=== PATIENT | female | born 1940 | race Caucasian/White ===

== ENCOUNTER → 2017-04-20 | Outpatient (CLI) | payer MEDICARE ==
[~2017-04-20] MED LIST: IOHEXOL 180 MG/ML 10 ML VIAL.; methylPREDNISolone ACETATE 40 MG/ML VIAL.; methylPREDNISolone ACETATE 80 MG/ML VIAL.
== END | disposition home or self-care (01) ==
LOC: PNCL 07:36
DX: M51.16 Intervertebral disc disorders with radiculopathy, lumbar region (principal); M48.061 Spinal stenosis, lumbar region without neurogenic claudication; I25.10 Atherosclerotic heart disease of native coronary artery without angina pectoris; I10 Essential (primary) hypertension; J43.9 Emphysema, unspecified; K21.9 Gastro-esophageal reflux disease without esophagitis; M19.90 Unspecified osteoarthritis, unspecified site; Z86.73 Personal history of transient ischemic attack (TIA), and cerebral infarction without residual deficits
CPT/HCPCS: 62323; J1030; J1040

== ENCOUNTER → 2017-05-04 | Outpatient (CLI) | payer MEDICARE | END | disposition home or self-care (01) | LOC: PNCL 07:29 | DX: M51.16 Intervertebral disc disorders with radiculopathy, lumbar region (principal); M48.061 Spinal stenosis, lumbar region without neurogenic claudication | CPT/HCPCS: 62323; J1030; J1040; Q9965 ==

== ENCOUNTER → 2017-05-25 | Outpatient (CLI) | payer MEDICARE ==
[~2017-05-25] MED LIST changes: +BUPIVACAINE MPF 0.25% 10 ML VIAL.; -IOHEXOL 180 MG/ML 10 ML VIAL.; -methylPREDNISolone ACETATE 80 MG/ML VIAL.
== END | disposition home or self-care (01) ==
LOC: PNCL 09:12
DX: M79.1 Myalgia (principal); M51.16 Intervertebral disc disorders with radiculopathy, lumbar region; M48.061 Spinal stenosis, lumbar region without neurogenic claudication; M54.5 Low back pain; I25.10 Atherosclerotic heart disease of native coronary artery without angina pectoris; J43.9 Emphysema, unspecified; I10 Essential (primary) hypertension; Z86.73 Personal history of transient ischemic attack (TIA), and cerebral infarction without residual deficits; K21.9 Gastro-esophageal reflux disease without esophagitis; M19.90 Unspecified osteoarthritis, unspecified site; Z79.899 Other long term (current) drug therapy
CPT/HCPCS: 20552; J1030; J3490

== ENCOUNTER → 2017-06-22 | Outpatient (CLI) | payer MEDICARE ==
[2017-06-22] MEDS: REGADENOSON 0.4 MG/5 ML DISP.SYRIN. IV (11:14)
== END | disposition home or self-care (01) ==
LOC: ECHO 07:25
DX: I25.10 Atherosclerotic heart disease of native coronary artery without angina pectoris (principal); I08.1 Rheumatic disorders of both mitral and tricuspid valves; I12.9 Hypertensive chronic kidney disease with stage 1 through stage 4 chronic kidney disease, or unspecified chronic kidney disease; N18.1 Chronic kidney disease, stage 1; J43.9 Emphysema, unspecified; Z79.899 Other long term (current) drug therapy
CPT/HCPCS: 78452; 93017; 93306; 96374; 96375; 96376; A9500; J2785

== ENCOUNTER → 2017-07-19 | Outpatient (CLI) | payer MEDICARE ==
[2017-07-20] MEDS: OXYMETAZOLINE 0.05% NASAL SPRAY 30ML BOTTLE. NS (00:45)
== END | disposition home or self-care (01) ==
LOC: SLPLAB 18:18
DX: G47.33 Obstructive sleep apnea (adult) (pediatric) (principal)
CPT/HCPCS: 95810

== ENCOUNTER → 2017-07-28 | Outpatient (CLI) | payer MEDICARE ==
[2017-07-28 08:28] LABS: CHOLESTEROL 160 mg/dL (0-200); HDLC 36 mg/dL (40-60); LDLC 100 mg/dL (0-100); NON-HDL CHOLESTEROL 124 mg/dL (0-129); TRIGLYCERIDES 118 mg/dL (0-150); VLDLC 24 mg/dL (0-40)
[2017-07-28 08:29] LABS: CHOLESTEROL/HDL RATIO 4.4
[2017-07-28 13:22] LABS: VITAMIN-B12 520 pg/mL (247-911)
== END | disposition home or self-care (01) ==
LOC: LAB 07:28
DX: E78.5 Hyperlipidemia, unspecified (principal); R53.83 Other fatigue
CPT/HCPCS: 36415; 80061; 82607

== ENCOUNTER → 2017-08-18 | Outpatient (CLI) | payer MEDICARE | END | disposition home or self-care (01) | LOC: SLPLAB 20:09 | DX: G47.33 Obstructive sleep apnea (adult) (pediatric) (principal); I12.9 Hypertensive chronic kidney disease with stage 1 through stage 4 chronic kidney disease, or unspecified chronic kidney disease; N18.1 Chronic kidney disease, stage 1 | CPT/HCPCS: 95810 ==

== ENCOUNTER → 2017-08-27 | Outpatient (CLI) | payer MEDICARE ==
[~2017-08-27] MED LIST changes: -BUPIVACAINE MPF 0.25% 10 ML VIAL.; +CONTRAST GIVEN. MC; -methylPREDNISolone ACETATE 40 MG/ML VIAL.
[2017-08-27 15:16] LABS: CREATININE 0.9 mg/dL (0.6-1.0); GFR 60.6
[2017-08-27 15:16] LABS: BLOOD UREA NITROGEN 28 mg/dL (7-20)
[2017-08-27] MEDS: IOHEXOL 300 MG/ML 100ML VIAL. IV (15:54)
== END | disposition home or self-care (01) ==
LOC: CT 14:39
DX: I25.10 Atherosclerotic heart disease of native coronary artery without angina pectoris (principal); K44.9 Diaphragmatic hernia without obstruction or gangrene; N28.1 Cyst of kidney, acquired; J98.11 Atelectasis; I70.0 Atherosclerosis of aorta
CPT/HCPCS: 36415; 71275; 82565; 84520; Q9967

== ENCOUNTER → 2017-08-30 | Outpatient (CLI) | payer MEDICARE ==
[~2017-08-30] MED LIST changes: -CONTRAST GIVEN. MC; +IOHEXOL 180 MG/ML 10 ML VIAL.; +LIDOCAINE 1% PF 2 ML VIAL.; +methylPREDNISolone ACETATE 40 MG/ML VIAL.; +methylPREDNISolone ACETATE 80 MG/ML VIAL.
== END | disposition home or self-care (01) ==
LOC: PNCL 07:42
DX: M51.16 Intervertebral disc disorders with radiculopathy, lumbar region (principal); M48.061 Spinal stenosis, lumbar region without neurogenic claudication
CPT/HCPCS: 62323; J1030; J1040; Q9965

== ENCOUNTER → 2017-09-02 | Outpatient (CLI) | payer MEDICARE | END | disposition home or self-care (01) | LOC: KCIC DEXA 09:28 | DX: M85.88 Other specified disorders of bone density and structure, other site (principal); E55.9 Vitamin D deficiency, unspecified; E11.9 Type 2 diabetes mellitus without complications; M51.36 Other intervertebral disc degeneration, lumbar region; I12.9 Hypertensive chronic kidney disease with stage 1 through stage 4 chronic kidney disease, or unspecified chronic kidney disease; N18.2 Chronic kidney disease, stage 2 (mild); E78.5 Hyperlipidemia, unspecified; Z78.0 Asymptomatic menopausal state | CPT/HCPCS: 77080 ==

== ENCOUNTER → 2017-11-25 | Outpatient (CLI) | payer MEDICARE ==
[~2017-11-25] MED LIST changes: +ACET-1571 PO; +AMLO10TA6 PO; +ASPI-482 PO; +ERGO500027 PO; +GABA-585 PO; -IOHEXOL 180 MG/ML 10 ML VIAL.; +IOHEXOL 180 MG/ML 10 ML VIAL. ONE; -LIDOCAINE 1% PF 2 ML VIAL.; +LIDOCAINE 2% PF 2ML VIAL. ONE; +METO-247 PO; +QUIN40TA16 PO; +TOLT2CAP PO; +TOLT4CAP PO; -methylPREDNISolone ACETATE 40 MG/ML VIAL.; +methylPREDNISolone ACETATE 40 MG/ML VIAL. ONE; -methylPREDNISolone ACETATE 80 MG/ML VIAL.; +methylPREDNISolone ACETATE 80 MG/ML VIAL. ONE
--- NOTE | 2017-11-25 19:34 | PAIN ---
DATE OF SERVICE: 11/25/2017 PROGRESS NOTE FOR PAIN CLINIC DIAGNOSES: Lumbar radiculopathy with lumbar degenerative disk disease, lumbar spinal stenosis. HISTORY OF PRESENT ILLNESS: The patient is a 77-year-old female who returns for followup status post lumbar epidural steroid injections, last seen 08/30/2017. The patient did very well, about 90% improvement for the first few weeks, pain is returning now in the low back and left lower extremity as it was previously, mostly in the posterior gluteus, posterolateral thigh, lateral anterior thigh, medial thigh, into the medial hip on the left side. The patient reports a 9 on a scale of 10 at its worst, 8 on average, 5 at its least and is a 5 today. The patient reports it is becoming more constant, more sharp, shooting, stabbing and radiating in the left leg. She was increasing her distance walking, vacuuming at home, doing increased household activities and feels that she may have "overdone it." The patient reports no new motor or sensory deficits, no new bowel or bladder incontinence or other complaints. PHYSICAL EXAMINATION: VITAL SIGNS: The patient's blood pressure 150/81, pulse 75, respirations 16, temperature 98.1 degrees Fahrenheit. Height is 5 feet 6 inches, weight is 184 pounds. GENERAL: The patient is awake, alert, oriented, appropriate, very pleasant demeanor. HEENT: Head shows normocephalic, atraumatic. Extraocular movements are intact, symmetrical. Oral cavity: Mucous membranes moist and pink. Dentition is intact. NECK: Shows anterior throat supple without palpable lymphadenopathy noted. Swallow reflex symmetrical. CHEST: Shows normal with inspection. Breath sounds clear to auscultation bilaterally. HEART: Shows S1, S2 clear. No murmurs auscultated. ABDOMEN: Soft, nontender, nondistended. No palpable organomegaly. No rebound or guarding demonstrated. BACK: Shows spine grossly in the midline. Slight exaggeration of thoracic kyphosis, some minor flattening of lumbar lordotic curvature. Lumbar paraspinous muscle shows symmetrical on inspection, with palpation shows only some mild tenderness diffusely in the low lumbar distribution of paraspinous muscles bilaterally without radiation, without trigger points. No tenderness with palpation of the sacrum or sacroiliac regions over the spinous processes. The patient has good rotational motion of lumbar spine, both laterally as well as extension and flexion without difficulty or pain reported. EXTREMITIES: Lower extremities show deep tendon reflexes 2+ in the patellar, 1+ tendo calcaneus tendons, are equal. Motor exam is strong with 5/5 dorsiflexion, extension, quadriceps and hamstring flexion and symmetrical. Peripheral pulses are 1+ posterior tibia. No peripheral edema is noted. Options were discussed with the patient. The patient's old chart was reviewed as her current medication regimen updated. Current review of systems updated today as well and we will proceed with the first in the series of lumbar epidural steroid injection today with fluoroscopic guidance. Risks were again discussed including, but not limited to bleeding, infection, possibility of epidural hematoma, subsequent neurologic compromise, dural puncture, headaches, spinal cord and/or nerve damage, side effects of steroid medication and poor results regarding pain control. The patient understands and wished to proceed. The patient will return to clinic in approximately 2 weeks for followup, was counseled on return appointment, activity level and side effects to be aware of. DIAGNOSES: Lumbar radiculopathy with lumbar spinal stenosis, lumbar degenerative disk disease. PROCEDURE: Lumbar epidural steroid injection, translaminar approach L4-L5 level using C-arm fluoroscopic guidance under sterile prep and drape using local anesthetic. MEDICATION INJECTED: A total of 120 mg Depo-Medrol plus 10 mL of preservative-free normal saline and 2 mL of Isovue for contrast. CONDITION AT DISCHARGE: Stable. The patient tolerated procedure well, had no complications. TURNER LEVY MD DR: ALBERTO/lopez JOB#: [id number] / [id number]
== END | disposition home or self-care (01) ==
LOC: PNCL 07:52
PROVIDERS: ATTEND Anesthesiology
DX: M51.16 Intervertebral disc disorders with radiculopathy, lumbar region (principal); M48.061 Spinal stenosis, lumbar region without neurogenic claudication
CPT/HCPCS: 62323; J1030; J1040; J2001; Q9965

== ENCOUNTER → 2017-12-13 | Outpatient (CLI) | payer MEDICARE ==
--- NOTE | 2017-12-13 09:42 | PAIN ---
DATE OF SERVICE: 12/13/2017 DIAGNOSES: Lumbar radiculopathy with lumbar degenerative disk disease and lumbar spinal stenosis. HISTORY OF PRESENT ILLNESS: The patient is a 77-year-old female who returns for followup status post lumbar epidural steroid injection x 1. The patient reports about 50% improvement after the first injection, but the pain is returning now more on the left than the right in the lower extremities, but her toes are doing much better. The patient reports she is having significant pain in her toes that has now gone. She has been increasing her activity with greater distance walking, doing household activities with greater ease and comfort, still waking her from sleep occasionally with pain in the low back, again worse on the left, but about every 4-5 hours. She can reposition, gently get out of bed, change positions and get back to sleep without too much difficulty. The patient reports her pain is a 9 on a scale of 10 on average, but it can also be as low as a 4, at its worse is a 9, least is a 3, and is a 4 today. The patient reports it is a dull, tight, shooting, radiating across the low back into the left lower extremity greater than the right, mostly in the lateral anterior aspect of the thigh, but the toes are doing much better. No new motor or sensory deficits. No new bowel or bladder incontinence or other complaints. PHYSICAL EXAMINATION: VITAL SIGNS: The patient's blood pressure is 133/54, pulse 76, respirations 20, temperature 98.0 degrees Fahrenheit, height is 5 feet 6 inches, weight is 184 pounds. GENERAL: The patient is awake, alert, oriented, appropriate, very pleasant demeanor. HEENT: Head shows normocephalic, atraumatic. Extraocular movements are intact and symmetrical. Oral cavity: Mucous membranes moist and pink. Dentition is intact. NECK: Shows anterior throat supple without palpable lymphadenopathy noted. Swallow reflex is symmetrical. CHEST: Shows normal with inspection. Breath sounds are clear to auscultation bilaterally. HEART: Shows S1, S2 clear. No murmurs auscultated. ABDOMEN: Soft, nontender, nondistended. No palpable organomegaly is noted. No rebound or guarding demonstrated. BACK: Shows spine grossly in the midline, normal appearing thoracic kyphosis and some minor flattening of lumbar lordotic curvature. Lumbar paraspinous muscle shows symmetrical on inspection. With palpation shows some mild tenderness, but only diffusely in the lower middle distribution of paraspinous muscles. The patient has good rotational motion, however, both laterally greater than 10 degrees right and left as well as extension greater than 10 degrees, forward flexion 45 degrees without discomfort. EXTREMITIES: Lower extremities show deep tendon reflexes at 2+ in the patellar, 1+ tendo calcaneus tendons. Motor exam is strong with 5/5 dorsiflexion, extension, quadriceps and hamstring flexion and symmetrical. Peripheral pulses are 1+ posterior tibia. No peripheral edema is noted bilaterally. Options were discussed with the patient. The patient's old chart was reviewed as is her current medication regimen updated. Current review of systems is updated today as well. We will proceed with lumbar epidural steroid injections, the second in this series with fluoroscopic guidance. Risks were again discussed including, but not limited to bleeding, infection, possibility of epidural hematoma, subsequent neurologic compromise, dural puncture, headaches, spinal cord and/or nerve damage, side effects of steroid medication and poor results regarding pain control. The patient understands and wished to proceed. The patient will return to the clinic in approximately 2 weeks for followup, was counseled on return appointment, activity level and side effects to be aware of. DIAGNOSIS: Lumbar radiculopathy with lumbar spinal stenosis, lumbar degenerative disk disease. PROCEDURE: Lumbar epidural steroid injection, translaminar approach at L4-L5 level using C-arm fluoroscopic guidance under sterile prep and drape using local anesthetic. MEDICATION INJECTED: A total of 120 mg Depo-Medrol plus 10 mL of preservative-free normal saline and 2 mL of Isovue for contrast. CONDITION AT DISCHARGE: Stable. The patient tolerated the procedure well, had no complications. TURNER LEVY MD DR: ALBERTO/lopez JOB#: [id number] / [id number]
== END | disposition home or self-care (01) ==
LOC: PNCL 08:00
PROVIDERS: ATTEND Anesthesiology
DX: M51.16 Intervertebral disc disorders with radiculopathy, lumbar region (principal); M48.061 Spinal stenosis, lumbar region without neurogenic claudication; Z79.899 Other long term (current) drug therapy
CPT/HCPCS: 62323; J1030; J1040; J2001; Q9965

== ENCOUNTER → 2017-12-27 | Outpatient (CLI) | payer MEDICARE ==
[~2017-12-27] MED LIST changes: +BUPIVACAINE MPF 0.25% 30 ML VIAL. ONE; -IOHEXOL 180 MG/ML 10 ML VIAL. ONE; -LIDOCAINE 2% PF 2ML VIAL. ONE; -methylPREDNISolone ACETATE 80 MG/ML VIAL. ONE
--- NOTE | 2017-12-27 20:11 | PAIN ---
DATE OF SERVICE: 12/27/2017 DIAGNOSES: 1. Lumbar radiculopathy with lumbar spinal stenosis and lumbar degenerative disk disease. 2. Myofascial pain. HISTORY OF PRESENT ILLNESS: The patient is a 77-year-old female who returns for followup status post lumbar epidural steroid injection x 2. The patient reports she did very well with these for about 2 weeks, then the pain returns fairly significantly to near baseline. The patient reports still overall about 50% better in the low back and left hip and lower extremity. The patient reports pain is sharp, stabbing and now is more localized in the left posterior gluteus and the hip, which is very sore, very tender. The patient is undergoing physical therapy and reports that they were doing some trigger massage in this area, which is started up to some extent and caused more pain in the left hip. Otherwise, the leg is doing better as is the low back. The patient reports pain is 8 on a scale of 10 at its worse, 5 on average, 4 at its least and is a 5 today in the left posterior hip itself. The patient reports no new motor or sensory deficits, no new bowel or bladder incontinence or other complaints, worse with standing, walking, changing positions and getting up from a sitting position most specifically in this region. PHYSICAL EXAMINATION: VITAL SIGNS: The patient's blood pressure 157/82, pulse 80, respirations are 20, temperature is 98.2 degrees Fahrenheit, height is 5 feet 6 inches, weight is 185 pounds. GENERAL: The patient is awake, alert, oriented, appropriate, very pleasant demeanor. HEENT: Head shows normocephalic, atraumatic. Extraocular movements are intact, symmetrical. Oral cavity, mucous membranes moist and pink. Dentition is intact. NECK: Shows anterior throat supple without palpable lymphadenopathy noted. Swallow reflex is symmetrical. CHEST: Shows normal with inspection. Breath sounds clear to auscultation bilaterally. HEART: Shows S1, S2 clear. No murmurs auscultated. ABDOMEN: Soft, nontender, nondistended. No palpable organomegaly is noted. No rebound or guarding demonstrated. BACK: Shows spine grossly in the midline. Normal appearing thoracic kyphosis and lumbar lordotic curvature. Lumbar paraspinous musculature shows symmetrical on inspection and palpation shows some mild tenderness but only diffusely bilaterally in the low lumbar distribution without radiation. EXTREMITIES: The patient's lower extremities show deep tendon reflexes 2+ in the patellar, 1+ tendo calcaneus tendons. Motor exam is strong with 5/5 dorsiflexion and extension, quadriceps and hamstring flexion. The patient's left gluteus shows significant tenderness, a very firm trigger point area of musculature in the inferior lateral aspect of the left gluteus, which is exquisitely tender with palpation and very firm right side shows only very mild tenderness without trigger points. Options were discussed with the patient. The patient's old chart was reviewed as her current medication regimen and updated. Current review of systems is updated today as well. We will proceed with a trigger point injection of the left gluteus. Risks were discussed including but not limited to bleeding, infection, possibility of intravascular injection sequelae, spread of local anesthetic and numbness, side effects of steroid medication and poor results regarding pain control. The patient understands and wished to proceed. The patient to return to the clinic in approximately 2 weeks for followup, was counseled on return appointment, activity level and side effects to be aware of. DIAGNOSIS: Myofascial pain in the left gluteus. PROCEDURE: Trigger point injection left gluteus under sterile prep and drape using local anesthetic. MEDICATION INJECTED: A total of 4 mL of 0.25% bupivacaine and 40 mg Depo-Medrol total with negative aspiration. The patient tolerated procedure well, had no complications. TURNER LEVY MD DR: ALBERTO/lopez JOB#: [id number] / [id number]
== END | disposition home or self-care (01) ==
LOC: PNCL 08:10
PROVIDERS: ATTEND Anesthesiology
DX: M79.18 Myalgia, other site (principal); M51.16 Intervertebral disc disorders with radiculopathy, lumbar region; M48.061 Spinal stenosis, lumbar region without neurogenic claudication
CPT/HCPCS: 20552; J1030; J3490

== ENCOUNTER → 2017-12-30 | Outpatient (CLI) | payer MEDICARE ==
[~2017-12-30] MED LIST changes: -BUPIVACAINE MPF 0.25% 30 ML VIAL. ONE; -methylPREDNISolone ACETATE 40 MG/ML VIAL. ONE
--- NOTE | 2017-12-30 17:42 | RAD ---
THYROID ULTRASOUND History: Thyroid nodule on chest CT Comparison: August 27, [address] Findings: Multiple sonographic images of the thyroid gland are submitted. Right lobe measured 5.3 x 1.9 x 1.18. Left lobe measured 5.1 x 2 x 1.9 cm. There are multiple small nodules of the right gland, about 5 present with dominant nodule of the mid to inferior right gland about 0.9 x 0.9 x 0.8 cm, not associated with significant internal vascularity. Isthmus measured 0.2 cm in thickness. There is a heterogeneous solid and cystic lesion of the mid left gland about 1.7 x 1.5 at 1.3 cm in size not associated with significant internal vascularity on color Doppler imaging. There is heterogeneity of the thyroid parenchyma. Impression: 1. There is thyromegaly and heterogeneity of the thyroid parenchyma, several small nodules on the right with the largest up to 0.9 cm and a more heterogeneous partially solid and cystic lesion of the mid left gland up to 1.7 cm although not associated with significant hypervascularity. Electronically signed by: Krzysztof Hui MD (12/30/2017 5:39 PM) [email or web address]
--- NOTE | 2017-12-30 17:45 | RAD ---
RENAL COMPLETE BILATERAL History: Abnormal CT, renal cyst Comparison: Chest CT August 27, 2017 and also August 29, 2010 ultrasound Findings: Multiple sonographic images of the kidneys and urinary bladder are submitted. Right kidney measured 9.9 x 3.5 x 4.2 cm. Left kidney measured 10 x 4.6 x 5.5 cm. There is no hydronephrosis of either kidney. Urinary bladder morphology is within normal limits. There is a hypoechoic lesion of the superior right kidney up to 1.2 x 1.4 x 1.1 cm with increased through transmission, overall findings of a cyst. There are 3 hypoechoic lesions of the left kidney. Largest of the mid to superior left kidney measured 6.8 x 7.6 x 5.3 cm. Focus of the mid pole measures 1.3 x 1.3 x 1 cm. Focus inferiorly measures 1 3.4 x 3.5 x 3.5 cm. These are not associated with significant hypervascularity, overall findings suggestive of cysts. Impression: 1. There are bilateral renal cysts, largest superiorly of the left kidney up to 7.6 cm in size. There is no hydronephrosis of either kidney. Electronically signed by: Krzysztof Hui MD (12/30/2017 5:42 PM) [id number]
== END | disposition home or self-care (01) ==
LOC: US 14:59
DX: N28.1 Cyst of kidney, acquired (principal); E01.0 Iodine-deficiency related diffuse (endemic) goiter; N28.89 Other specified disorders of kidney and ureter
CPT/HCPCS: 76536; 76770

== ENCOUNTER → 2018-01-10 | Outpatient (CLI) | payer MEDICARE ==
[~2018-01-10] MED LIST changes: +BUPIVACAINE MPF 0.25% 10 ML VIAL. ONE; +methylPREDNISolone ACETATE 40 MG/ML VIAL. ONE
--- NOTE | 2018-01-10 12:14 | PAIN ---
DATE OF SERVICE: 01/10/2018 DIAGNOSES: 1. Lumbar radiculopathy with lumbar degenerative disk disease, lumbar spinal stenosis. 2. Myofascial pain. HISTORY OF PRESENT ILLNESS: The patient is a 77-year-old female who returns for followup status post lumbar epidural steroid injections x 2. Also, trigger point injection on her last visit in the left gluteus musculature. The patient reports she did very well about a week, almost 100% improvement, now is about a 50% improvement overall, still some pain in the left hip and low back as well as in the bilateral lower extremities, somewhat worse on the left than the right, with some numbness and tingling in her toes as well. The patient reports significant pain in the right posterior shoulder as well, which has been more noticeable in the last few weeks. The patient reports her pain is a 9 on a scale of 10 at its worst, 7 on average, 5 at its least and is a 7 today. The patient reports it is an aching, dull, tight, shooting, sharp, sometimes radiating to the lower extremities, with numbness and tingling in the feet, especially on the left side of the right shoulder, is tight and stabbing as well. The patient reports she was increasing her household activities about her last visit, for about the first week or so, doing better with activities and sleeping better at night. The patient reports no new motor or sensory deficits, no new bowel or bladder incontinence. She is currently in physical therapy, which has not been significantly improving her back or her shoulder. PHYSICAL EXAMINATION: VITAL SIGNS: Today, the patient's blood pressure is 159/91, pulse 91, respirations 20, temperature 98.3 degrees Fahrenheit. Height 5 feet 6 inches, weight is 188 pounds. GENERAL: The patient is awake, alert, oriented, appropriate, very pleasant demeanor. HEENT: Head shows normocephalic, atraumatic. Extraocular movements intact and symmetrical. Oral cavity: Mucous membranes moist and pink. Dentition is intact. NECK: Shows anterior throat supple without palpable lymphadenopathy noted. Swallow reflex symmetrical. CHEST: Shows normal on inspection. Breath sounds clear to auscultation bilaterally. HEART: Shows S1, S2 clear. No murmurs auscultated. ABDOMEN: Soft, nontender, nondistended. No palpable organomegaly is noted. No rebound or guarding demonstrated. BACK: Shows spine grossly in the midline, slight exaggerated thoracic kyphosis and minor flattening of lumbar lordotic curvature. The patient's low back shows good rotational motion both laterally as well as extension and flexion without significant difficulty. The patient's left gluteus shows very firm rope-like musculature in the superior lateral aspect of the left gluteus, very firm, very tender without specific radiation, but very easily palpable consistent with rope-like trigger point musculature. This is true into the right shoulder as well posteriorly in the trapezius musculature as well as the posterior deltoid, very firm rope-like musculature, very tender with palpation. Very specific point tenderness, without specific radiation. The patient has good rotational motion of the shoulder joint, both laterally as well as anterior and posterior range of motion as well as abduction without significant pain, but very firm rope-like very tender musculature, consistent with myofascial syndrome and trigger points in the right trapezius, deltoid as well as the left gluteus. Options were discussed with the patient. The patient's old chart was reviewed as her current medication regimen updated. Current review of systems updated today as well. We will proceed with trigger point injections today of the right trapezius, right deltoid as well as the left gluteus. Risks were again discussed including, but not limited to bleeding, infection, possibility of intravascular injection sequelae, spread of local anesthetic and numbness, pneumothorax, side effects of steroid medication and poor results regarding pain control. The patient understands and wished to proceed. The patient will return to clinic in approximately 2 weeks for followup. She was counseled on return appointment, activity level and side effects to be aware of. DIAGNOSIS: Myofascial pain, right trapezius, deltoid and left gluteus. PROCEDURE: Trigger point injections, right trapezius, deltoid and left gluteus under sterile prep and drape using local anesthetic. MEDICATION INJECTED: A total of 7 mL of 0.25% bupivacaine and total of 40 mg Depo-Medrol after negative aspiration at each injection site. CONDITION AT DISCHARGE: Stable. The patient tolerated procedure well, had no complications. TURNER LEVY MD DR: ALBERTO/lopez JOB#: [id number] / [id number]
== END | disposition home or self-care (01) ==
LOC: PNCL 07:54
PROVIDERS: ATTEND Anesthesiology
DX: M79.18 Myalgia, other site (principal); M51.16 Intervertebral disc disorders with radiculopathy, lumbar region; M48.061 Spinal stenosis, lumbar region without neurogenic claudication
CPT/HCPCS: 20553; J1030; J3490

== ENCOUNTER → 2018-01-24 | Outpatient (CLI) | payer MEDICARE ==
[~2018-01-24] MED LIST changes: -BUPIVACAINE MPF 0.25% 10 ML VIAL. ONE; +IOHEXOL 180 MG/ML 10 ML VIAL. ONE; +methylPREDNISolone ACETATE 80 MG/ML VIAL. ONE
--- NOTE | 2018-01-24 22:18 | PAIN ---
DATE OF SERVICE: 01/24/2018 PROGRESS NOTE FOR PAIN CLINIC DIAGNOSES: Lumbar radiculopathy with lumbar spinal stenosis and lumbar degenerative disk disease. HISTORY OF PRESENT ILLNESS: The patient is a 77-year-old female who returns for followup status post lumbar epidural steroid injections x 2, most recently 12/13/2017. The patient did very well with that with about 50% improvement for the first week or so and then returning. The patient reports still about 50% improved overall. On her last visit, she had trigger point injection of the right shoulder as well as the left hip. Left hip is doing much better but the shoulder is still very painful. The patient reports no new motor or sensory deficits and no new bowel or bladder incontinence. The patient reports her feet is her main complaint with pain in the low back radiating into the lower extremities, lateral thigh, anterior thigh, medial thigh and into the foot with some numbness on the left side, worse than the right. The patient reports that her "toes hurt." The patient reports the pain is aching, tingling, radiating, on and off in intensity, worse with walking, standing, change positions, better with sitting or lying down, does not awaken her from sleep at night. The patient reports she only sleeps about 2 hours at a time but it is not because of the pain. The patient reports initially her increased distance walking with much greater ease and also doing household activities, traveling much greater ease and comfort now, returning especially in the left lower extremity in the left foot with some numbness in both feet, which has improved significantly with the injections in the past. The patient rates the pain 8 on a scale of 10 at its worst, 5 on average, 2 at its least and is a 2 today. PHYSICAL EXAMINATION: VITAL SIGNS: The patient's blood pressure is 157/87, pulse is 88, respirations 16, temperature is 97.8 degrees Fahrenheit, height is 5 feet 6 inches and weight is 190 pounds. GENERAL: The patient is awake, alert, oriented, appropriate and very pleasant demeanor. HEENT: Head shows normocephalic and atraumatic. Extraocular movements are intact and symmetrical. Oral cavity: Mucous membranes moist and pink. Dentition is intact. NECK: Shows anterior throat supple without palpable lymphadenopathy noted. Swallow reflex symmetrical. CHEST: Shows normal on inspection. Breath sounds clear to auscultation bilaterally. HEART: Shows S1 and S2 clear. No murmurs auscultated. ABDOMEN: Soft, nontender and nondistended. No palpable organomegaly is noted. No rebound or guarding demonstrated. BACK: Shows spine grossly in the midline. Slight exaggeration of the thoracic kyphosis and some minor flattening of lumbar lordotic curvature. Lumbar paraspinous musculature shows symmetrical on inspection, on palpation shows some moderate tenderness but only diffusely without radiation. No tenderness over the sacrum or sacroiliac regions. EXTREMITIES: The patient's lower extremities show deep tendon reflexes at 2+ in the patellar, 1+ tendo-calcaneus tendons. Motor exam is strong with 5/5 dorsiflexion, extension, quadriceps and hamstring flexion and symmetrical. Peripheral pulses are 1+ posterior tibia. No peripheral edema is noted bilaterally. Options were discussed with the patient. The patient's old chart was reviewed as well as her current medication regimen updated. Current review of systems updated today as well. We will proceed with a lumbar epidural steroid injection, the third in this series. Risks were again discussed including, but not limited to bleeding, infection, possibility of epidural hematoma and subsequent neurological compromise, dural puncture headache, spinal cord and/or nerve damage, side effects of steroid medication and poor results regarding pain control. The patient understands and wished to proceed. The patient will return to the clinic in approximately 2 weeks for followup, was counseled as to return appointment, activity levels and side effects to be aware of. DIAGNOSIS: Lumbar radiculopathy with lumbar degenerative disk disease, lumbar spinal stenosis. PROCEDURE: Lumbar epidural steroid injection, translaminar approach at the L4-L5 level using C-arm fluoroscopic guidance under sterile prep and drape using local anesthetic. MEDICATION INJECTED: A total of 120 mg Depo-Medrol plus 10 mL of preservative-free normal saline and 2 mL of Isovue for contrast. CONDITION AT DISCHARGE: Stable. The patient tolerated the procedure well and had no complications. TURNER LEVY MD DR: ALBERTO/lopez JOB#: [id number] / [id number]
== END | disposition home or self-care (01) ==
LOC: PNCL 08:07
PROVIDERS: ATTEND Anesthesiology
DX: M51.16 Intervertebral disc disorders with radiculopathy, lumbar region (principal); M48.061 Spinal stenosis, lumbar region without neurogenic claudication; R20.2 Paresthesia of skin; Z98.890 Other specified postprocedural states
CPT/HCPCS: 62323; J1030; J1040; Q9965

== ENCOUNTER → 2018-03-07 | Outpatient (CLI) | payer MEDICARE ==
[~2018-03-07] MED LIST changes: +BUPIVACAINE MPF 0.25% 10 ML VIAL. ONE; -IOHEXOL 180 MG/ML 10 ML VIAL. ONE; +MELO7.5T29 PO; -methylPREDNISolone ACETATE 80 MG/ML VIAL. ONE
--- NOTE | 2018-03-07 10:36 | PAIN ---
DATE OF SERVICE: 03/07/2018 PROGRESS NOTE FOR PAIN CLINIC DIAGNOSES: Lumbar radiculopathy with lumbar spinal stenosis and lumbar degenerative disk disease. HISTORY OF PRESENT ILLNESS: The patient is a 77-year-old female who returns for followup status post trigger point injection as well as lumbar epidural steroid injections x 3. The patient reports very good about 90% improvement with her low back pain. Her main complaint now is her left hip and she has had some trouble with some trigger points there in the past and reports this is becoming more tight, more stabbing and aching pain in the left hip posteriorly itself only but her back is doing much better. She has been increasing her activity with greater ease and comfort, walking greater distances, doing household activities with greater ease and comfort, traveling and sitting in a car much more comfortably, except for the left posterior hip. The patient reports it as a 7 on a scale of 10 at its worst, 5 on average and 3 at its least and is a 5 today. The patient reports it is aching, on and off in intensity, usually with activity, especially with standing and changing positions, sitting from standing and standing to sitting but again does not awaken her from sleep at night. The patient reports no new motor or sensory deficits and no new bowel or bladder incontinence. PHYSICAL EXAMINATION: VITAL SIGNS: The patient's blood pressure 158/85, pulse 76, respirations are 18 and temperature 97.5 degrees Fahrenheit. Height is 5 feet 6 inches and weighs 193 pounds. GENERAL: The patient is awake, alert, oriented, appropriate and very pleasant demeanor. HEENT: Head shows normocephalic and atraumatic. Extraocular movements are intact and symmetrical. Oral cavity: Mucous membranes moist and pink. Dentition is intact. NECK: Shows anterior throat supple without palpable lymphadenopathy noted. Swallow reflex symmetrical. CHEST: Shows normal on inspection. Breath sounds clear to auscultation bilaterally. HEART: Shows S1 and S2 clear. No murmurs auscultated. ABDOMEN: Soft, nontender and nondistended. No palpable organomegaly is noted. No rebound or guarding demonstrated. BACK: Shows spine grossly in the midline. Slight increase in the thoracic kyphosis and some minor flattening of the lumbar lordotic curvature. The patient has good rotational motion of the lumbar spine, both laterally as well as extension and flexion without difficulty. Paraspinous musculature shows only very mild tenderness in the lower lumbar distribution without radiation, without atrophy, hypertrophy or asymmetry, without trigger points. The patient's left gluteus, however, shows very firm rope-like musculature in the left lateral superior aspect of the gluteus, very firm, very tender, very easily palpable rope-like musculature consistent with trigger point areas of musculature without specific radiation. The patient has good rotational motion of the left hip. Negative Michael sign on the left as is negative on the right as well. EXTREMITIES: Lower extremities show deep tendon reflexes 2+ in the patellar, 1+ tendo-calcaneus tendons. Motor exam is strong with 5/5 dorsiflexion, extension, quadriceps and hamstring flexion. Peripheral pulses are 1+ posterior tibia. No peripheral edema is noted. Options were discussed with the patient. The patient's old chart was reviewed as well as her current medication regimen updated. Current review of systems updated today as well. We will proceed with trigger point injections, left gluteus. Risks were discussed including but not limited to bleeding, infection, possibility of intravascular injection sequelae, spread of local anesthetic and numbness, side effects of steroid medication as well as poor results regarding pain control. The patient understands and wished to proceed. The patient will return to the clinic in approximately 4 weeks for followup, was counseled as to return appointment, activity level and side effects to be aware of. DIAGNOSIS: Myofascial pain. PROCEDURE: Trigger point injections, left gluteus under sterile prep and drape using local anesthetic. MEDICATION INJECTED: A total of 40 mg Depo-Medrol plus total of 6 mL 0.25% bupivacaine after negative aspiration at each injection site. CONDITION AT DISCHARGE: Stable. The patient tolerated the procedure well and had no complications. TURNER LEVY MD DR: ALBERTO/lopez JOB#: [id number] / [id number]
== END | disposition home or self-care (01) ==
LOC: PNCL 08:00
PROVIDERS: ATTEND Anesthesiology
DX: M79.18 Myalgia, other site (principal); M51.16 Intervertebral disc disorders with radiculopathy, lumbar region; M48.061 Spinal stenosis, lumbar region without neurogenic claudication
CPT/HCPCS: 20552; J1030; J3490

== ENCOUNTER → 2018-06-02 | Outpatient (CLI) | payer MEDICARE ==
[~2018-06-02] MED LIST changes: -AMLO10TA6 PO; +AMLO10TA8 PO; -BUPIVACAINE MPF 0.25% 10 ML VIAL. ONE; +CELE200C PO; +TRAM50TA PO; -methylPREDNISolone ACETATE 40 MG/ML VIAL. ONE
--- NOTE | 2018-06-02 08:33 | RAD ---
Left hip, 2 views, 06/02/2018: HISTORY: Hip pain No fracture or dislocation is identified. The hip joint space is fairly well preserved with only minimal marginal spurring. The periarticular soft tissues are unremarkable. IMPRESSION: No acute left hip abnormality is detected. Electronically signed by: Otilio Robins MD (06/02/2018 8:30 AM) [facility]
== END | disposition home or self-care (01) ==
LOC: RAD 07:11
PROVIDERS: ATTEND Nurse Practitioner Family
DX: M25.552 Pain in left hip (principal)
CPT/HCPCS: 73502

== ENCOUNTER → 2018-06-22 | Outpatient (CLI) | payer MEDICARE ==
--- NOTE | 2018-06-24 09:41 | RAD ---
DATE: 06/22/2018 EXAM: MAMMO BEENA SCREENING BILATERAL HISTORY: Routine screening COMPARISON: 03/05/2016 This study was interpreted with the benefit of Computerized Aided Detection (CAD). Breast Density: HETERO The breast parenchyma is heterogenously dense, which could reduce sensitivity of mammography. Breast parenchyma level C. FINDINGS: 2-D and 3-D tomosynthesis imaging was performed in CC and MLO projections. The fibroglandular tissues are heterogeneously in a multinodular pattern. Numerous smooth bilateral breast nodule such as this tend to be benign. No spiculated mass or architectural distortion is seen. There are coarse benign type calcifications in both breasts as well as faint tiny scattered microcalcifications. There is some clustering of faint microcalcifications inferolaterally in the left breast as best seen in the CC projection. IMPRESSION: Clustered microcalcifications inferolaterally in the left breast. Magnification views are suggested for optimal characterization. BI-RADS CATEGORY: 0 INCOMPLETE: NEEDS ADDITIONAL IMAGING EVALUATION AND/OR PRIOR MAMMOGRAMS FOR COMPARISON. RECOMMENDED FOLLOW-UP: ADD ADDITIONAL IMAGING PQRS compliance statement: Patient information was entered into a reminder system with a target due date for the next mammogram. Mammography is a sensitive method for finding small breast cancers, but it does not detect them all and is not a substitute for careful clinical examination. A negative mammogram does not negate a clinically suspicious finding and should not result in delay in biopsying a clinically suspicious abnormality. "Our facility is accredited by the [employer] Mammography [employer]."
== END | disposition home or self-care (01) ==
LOC: MAMMO 08:44
PROVIDERS: ATTEND Nurse Practitioner Family
DX: Z12.31 Encounter for screening mammogram for malignant neoplasm of breast (principal); R92.0 Mammographic microcalcification found on diagnostic imaging of breast
CPT/HCPCS: 77063; 77067

== ENCOUNTER → 2018-06-28 | Outpatient (CLI) | payer MEDICARE ==
[~2018-06-28] MED LIST changes: +BUPIVACAINE MPF 0.25% 10 ML VIAL. ONE; +IOHEXOL 180 MG/ML 10 ML VIAL. ONE; +methylPREDNISolone ACETATE 80 MG/ML VIAL. ONE
--- NOTE | 2018-06-29 02:21 | PAIN ---
DATE OF SERVICE: 06/28/2018 DIAGNOSES: 1. Lumbar radiculopathy with lumbar spinal stenosis, lumbar degenerative disk disease. 2. Myofascial pain. 3. Right knee joint pain with primary osteoarthritis. HISTORY OF PRESENT ILLNESS: The patient is a 78-year-old female who returns for followup status post lumbar epidural steroid injections as well as trigger point injections in the past. The patient reports her main complaint today is her right knee is very painful with walking, standing, putting any weight on it, standing on a stair or a step primarily. The patient reports it is a burning pain, is stabbing, aching, better with sitting or resting. Does not awaken her from sleep at night. She also has some pain in the low back, bilateral lower extremities, worse on the left, but the knee is her chief complaint. The patient reports she needs to reposition to get back to sleep, but it is awakening her from sleep frequently now over the past month. The patient reports after her last epidural injection, she got about 90% improvement, did very well with that, but the pain is returning as well in the low back, again right knee is the main complaint today. The patient reports no new motor or sensory deficits, no new bowel or bladder incontinence or other complaints. PHYSICAL EXAMINATION: VITAL SIGNS: The patient's blood pressure is 146/78, pulse 68, respirations 18, temperature 97.8 degrees Fahrenheit, height is 5 feet 6 inches, weight is 184 pounds. GENERAL: The patient is awake, alert, oriented, appropriate, very pleasant demeanor. HEENT: Head is normocephalic, atraumatic. Extraocular movements are intact and symmetrical. Oral cavity: Mucous membranes moist and pink. Dentition intact. NECK: Shows anterior throat supple without palpable lymphadenopathy noted. Swallow reflex symmetrical. CHEST: Shows normal with inspection. Breath sounds clear to auscultation bilaterally. HEART: Shows S1, S2 clear. No murmurs auscultated. ABDOMEN: Soft, nontender, nondistended. No palpable organomegaly is noted. No rebound or guarding demonstrated. BACK: Shows spine grossly in the midline. Slight exaggeration of thoracic kyphosis and minor flattening of lumbar lordotic curvature. Lumbar paraspinous muscle shows symmetrical on inspection, with palpation shows some moderate tenderness diffusely throughout the upper, middle and lower distribution of paraspinous muscles, but only diffusely without radiation. EXTREMITIES: The patient's lower extremities show deep tendon reflexes 2+ in the patellar, 1+ tendo-calcaneus tendons. Motor exam is strong with 5/5 dorsiflexion, extension, quadriceps and hamstring flexion. The patient's right knee shows mild tenderness with weightbearing, but not with range of motion. Good range of motion without crepitus, without ratcheting and nonweightbearing. With weightbearing shows some moderate tenderness mostly in the medial and posterior aspect of the knee itself. This is worse with walking and especially worse with putting all of her weight on her right leg. Peripheral pulses are 1+ posterior tibial distribution. No peripheral edema is noted. Options were discussed with the patient. The patient's old chart was reviewed as her current medication regimen updated. Current review of systems updated today as well. We will proceed with a right intraarticular knee joint injection today with fluoroscopic guidance. Risks were again discussed including, but not limited to bleeding, infection, possibility of intravascular injection sequelae, spread of local anesthetic and numbness, side effects of steroid medication and poor results regarding pain control. The patient understands and wished to proceed. The patient will return to clinic in approximately 2 weeks for followup. She was counseled as to return appointment, activity level and side effects to be aware of. DIAGNOSIS: Primary osteoarthritis, right knee joint. PROCEDURE: Right knee joint intra-articular injection under C-arm fluoroscopic guidance using sterile prep and drape using local anesthetic. MEDICATION INJECTED: A total of 80 mg of Depo-Medrol plus total of 3 mL of 0.25% bupivacaine and 2 mL of Isovue for contrast. CONDITION AT DISCHARGE: Stable. The patient tolerated the procedure well, had no complications. TURNER LEVY MD DR: ALBERTO/lopez JOB#: [id number] / [id number]
== END | disposition home or self-care (01) ==
LOC: PNCL 09:48
PROVIDERS: ATTEND Anesthesiology
DX: M17.11 Unilateral primary osteoarthritis, right knee (principal); M48.061 Spinal stenosis, lumbar region without neurogenic claudication; M51.16 Intervertebral disc disorders with radiculopathy, lumbar region; M79.18 Myalgia, other site
CPT/HCPCS: 20610; 77002; J1040; J3490; Q9965

== ENCOUNTER → 2018-06-29 | Outpatient (CLI) | payer MEDICARE ==
[~2018-06-29] MED LIST changes: -BUPIVACAINE MPF 0.25% 10 ML VIAL. ONE; -IOHEXOL 180 MG/ML 10 ML VIAL. ONE; -methylPREDNISolone ACETATE 80 MG/ML VIAL. ONE
--- NOTE | 2018-06-29 10:43 | RAD ---
DATE: 06/29/2018 EXAM: DIGITAL DIAGNOSTIC LT HISTORY: Calcifications on screening mammogram COMPARISON: 06/22/2018 and 03/03/2016 mammographic exams This study was interpreted with the benefit of Computerized Aided Detection (CAD). Breast Density: HETERO The breast parenchyma is heterogenously dense, which could reduce sensitivity of mammography. Breast parenchyma level C. FINDINGS: Spot magnification imaging of the lateral left breast in CC projection was performed. Cluster of punctate calcifications is again seen. Small masses are present corresponding to prior screening examinations. No masses identified distortion with calcifications. Calcification is unremarkable identified on the mediolateral view or the mediolateral spot magnification image. IMPRESSION: Indeterminate calcifications. Calcifications may relate to an oil cyst. Six-month left unilateral diagnostic mammogram with spot magnification imaging recommended. BI-RADS CATEGORY: 3 PROBABLY BENIGN FINDING(S)-SHORT INTERVAL FOLLOW-UP SUGGESTED RECOMMENDED FOLLOW-UP: 6M 6 MONTH FOLLOW-UP PQRS follow-up statement: Patient information was entered into a reminder system with a target due date in 6 months for the next mammogram. Mammography is a sensitive method for finding small breast cancers, but it does not detect them all and is not a substitute for careful clinical examination. A negative mammogram does not negate a clinically suspicious finding and should not result in delay in biopsying a clinically suspicious abnormality. "Our facility is accredited by the [employer] Mammography [employer]."
== END | disposition home or self-care (01) ==
LOC: MAMMO 09:55
PROVIDERS: ATTEND Nurse Practitioner Family
DX: R92.8 Other abnormal and inconclusive findings on diagnostic imaging of breast (principal)
CPT/HCPCS: 77065

== ENCOUNTER → 2018-07-12 | Outpatient (CLI) | payer MEDICARE ==
[~2018-07-12] MED LIST changes: +IOHEXOL 180 MG/ML 10 ML VIAL. ONE; +methylPREDNISolone ACETATE 40 MG/ML VIAL. ONE; +methylPREDNISolone ACETATE 80 MG/ML VIAL. ONE
--- NOTE | 2018-07-12 23:54 | PAIN ---
DATE OF SERVICE: 07/12/2018 DIAGNOSES: 1. Lumbar radiculopathy with lumbar spinal stenosis, lumbar degenerative disk disease. 2. Myofascial pain. 3. Right knee joint pain with primary osteoarthritis. 4. Right shoulder joint pain with primary osteoarthritis. HISTORY OF PRESENT ILLNESS: The patient is a 78-year-old female who returns for followup status post knee joint injection on the right on her last visit. The patient reports 100% improvement with her knee. She is doing quite a bit better, increasing her activity with greater ease and comfort. Her main complaint is low back and left lower extremity pain in the posterior hip and gluteus, lateral thigh, anterior thigh, medial thigh on the left side. The patient reports it is a 4 on a scale of 10 at its worst, 3 on average, is 1 at its least and is a 3 today. The patient reports it is dull and sharp shooting pain in the left hip as it was previously. We had treated this with some lumbar epidural steroid injections, most recently in January of last year. The patient did quite well with this, about 90% improvement until here recently. The patient reports it is worse with walking, standing, increased activity, better with sitting or lying down, does not awaken her from sleep at night. The patient describes the pain is sharp and aching, sometimes burning and stabbing as well in the left side in the left leg. The patient reports no new motor or sensory deficits, no new bowel or bladder incontinence. Also, complains of some pain in the right shoulder. The right knee is doing much better. PHYSICAL EXAMINATION: VITAL SIGNS: The patient's blood pressure is 131/86, pulse 68, respirations are 18, temperature 98.1 degrees Fahrenheit, height is 5 feet 6 inches, weight is 181 pounds. GENERAL: The patient is awake, alert, oriented, appropriate, very pleasant demeanor. HEENT: Head is normocephalic, atraumatic. Extraocular movements are intact and symmetrical. Oral cavity: Mucous membranes moist and pink. Dentition is intact. NECK: Shows anterior throat supple without palpable lymphadenopathy noted. Swallow reflex symmetrical. CHEST: Shows normal with inspection. Breath sounds clear to auscultation bilaterally. HEART: Shows S1, S2 clear. No murmurs auscultated. ABDOMEN: No palpable organomegaly is noted. No rebound or guarding demonstrated. BACK: Shows spine grossly in the midline. Normal appearing thoracic kyphosis and lumbar lordotic curvature. Lumbar paraspinous muscle shows symmetrical on inspection, with palpation shows some moderate tenderness diffusely bilaterally going diffusely without significant radiation. EXTREMITIES: The patient's lower extremities show deep tendon reflexes at 2+ in the patellar, 1+ tendo calcaneus tendons. Motor exam is strong with 5/5 dorsiflexion and extension. Peripheral pulses are 1+ posterior tibia. No peripheral edema is noted bilaterally. Options were discussed with the patient. The patient's old chart was reviewed as her current medication regimen updated. Current review of systems updated today as well. We will proceed with a lumbar epidural steroid injection first in this series with fluoroscopic guidance. Risks were again discussed including, but not limited to bleeding, infection, possibility of epidural hematoma and subsequent neurological compromise, dural puncture, headaches, spinal cord and/or nerve damage, side effects of steroid medication and poor results regarding pain control. The patient understands and wished to proceed. The patient will return to clinic in approximately 2 weeks for followup. She was counseled as to return appointment, activity level and side effects to be aware of. DIAGNOSES: Lumbar radiculopathy with lumbar spinal stenosis, lumbar degenerative disk disease. PROCEDURE: Lumbar epidural steroid injection, translaminar approach L4-L5 level using C-arm fluoroscopic guidance under sterile prep and drape using local anesthetic. MEDICATION INJECTED: A total of 120 mg Depo-Medrol plus 10 mL of preservative-free normal saline and 2 mL of Isovue for contrast. CONDITION AT DISCHARGE: Stable. The patient tolerated procedure well, had no complications. TURNER LEVY MD DR: ALBERTO/lopez JOB#: [id number] / [id number]
== END | disposition home or self-care (01) ==
LOC: PNCL 10:21
PROVIDERS: ATTEND Anesthesiology
DX: M51.16 Intervertebral disc disorders with radiculopathy, lumbar region (principal); M48.061 Spinal stenosis, lumbar region without neurogenic claudication; M19.011 Primary osteoarthritis, right shoulder; M17.11 Unilateral primary osteoarthritis, right knee; M79.18 Myalgia, other site
CPT/HCPCS: 62323; J1030; J1040; Q9965

== ENCOUNTER → 2018-07-15 | Outpatient (CLI) | payer MEDICARE ==
[~2018-07-15] MED LIST changes: -IOHEXOL 180 MG/ML 10 ML VIAL. ONE; -methylPREDNISolone ACETATE 40 MG/ML VIAL. ONE; -methylPREDNISolone ACETATE 80 MG/ML VIAL. ONE
--- NOTE | 2018-07-15 15:43 | RAD ---
MRI of the lumbar spine without contrast 07/15/2018 CLINICAL HISTORY: Low back pain which radiates down the left leg. TECHNIQUE: Unenhanced T1-weighted and T2-weighted sagittal and axial and inversion recovery sagittal images of the lumbar spine were obtained. FINDINGS: Mild S-shaped curvature of the thoracolumbar spine is seen. Degenerative signal changes are seen involving all of the disks of the lumbar spine. Degenerative signal changes are seen within the marrow surrounding all these discs. Loss of height of the L2-3, L3-4 and L4-5 discs is noted. The conus medullaris is normal morphology, position, and signal characteristics. Incidental note is made of a 2 cm perineural cyst within the sacral spinal canal. A 8 mm hemangioma is seen involving the L1 vertebral body. Rounded high signal intensity lesions are seen involving the left kidney which measure 1.8 to 5.5 cm in size. They likely represent cysts. At the L1-2 disc space there is a minimal generalized disc bulge. Degenerative changes are seen involving the facet joints bilaterally. There is mild ligamentum flavum hypertrophy bilaterally. These findings do not result in significant central spinal canal or neural foraminal stenosis. At the L2-3 disc space there is a moderate generalized disc bulge. Degenerative changes are seen involving the facet joints bilaterally. There is moderate ligamentum flavum hypertrophy bilaterally. These findings when combined result in mild to moderate central spinal canal stenosis. No neural foraminal stenosis is seen. At the L3-4 disc space there is a mild to moderate generalized disc bulge. This is eccentric to the right. Degenerative changes are seen involving the facet joints bilaterally. There is moderate ligamentum flavum hypertrophy bilaterally. These findings when combined result in mild to moderate central spinal canal stenosis. Mild right neural foraminal stenosis is seen. The left neural foramen is patent. At the L4-5 disc space there is a mild to moderate generalized disc bulge. This is eccentric to the right. Degenerative changes are seen involving the facet joints bilaterally. There is mild to moderate ligamentum flavum hypertrophy bilaterally. A large oval-shaped structure is seen projecting anteriorly, medially and superiorly from the left facet joint. This measures 2.1 x 1.4 x 1.4 cm in craniocaudal, AP and transverse dimensions. This has a thickened wall with an area of increased signal intensity seen within it on the T1-weighted images and decreased signal intensity seen on the inversion recovery and T2-weighted images. Based on its location it is felt to most likely represent a large synovial cyst which may be hemorrhagic These findings results in severe left greater than right central spinal canal stenosis with mild bilateral neural foraminal stenosis at the L4-5 disc space. The synovial cyst contributes to moderate to severe left-sided central spinal canal stenosis extending to the superior L4 level. It appears to impinge upon the left L5 nerve root within the left aspect of the central spinal canal. At the L5-S1 disc space there is a mild generalized disc bulge. Degenerative changes are seen involving the facet joints, left greater than right. There is mild ligamentum flavum hypertrophy bilaterally. There is a small left facet joint effusion. These findings do not result in significant central spinal canal stenosis. Mild to moderate left neural foraminal stenosis is seen. The right neural foramen is patent. IMPRESSION: The changes of degenerative disc disease are seen throughout the lumbar spine. These findings result in mild to moderate central spinal canal stenosis at L2-3 and mild to moderate central spinal canal stenosis at L3-4. Severe left greater than right central spinal canal stenosis is seen at L4-5. An oval-shaped structure which is felt to most likely represent a synovial cyst is seen projecting anteriorly, medially and superiorly from the left facet joint at L4-5. This contributes to moderate to severe left-sided central spinal canal stenosis extending to the superior L4 level. It appears to impinge upon the left L5 nerve root within the left aspect of the central spinal canal. Mild right neural foraminal stenosis is seen at L3-4. Mild bilateral neural foraminal stenosis is seen at L4-5. Mild to moderate left neural foraminal stenosis is seen at L5-S1. Electronically signed by: Mu Floyd MD (07/15/2018 3:40 PM) [id number]
== END | disposition home or self-care (01) ==
LOC: MRI 08:21
PROVIDERS: ATTEND Nurse Practitioner Family
DX: M51.36 Other intervertebral disc degeneration, lumbar region (principal); M48.07 Spinal stenosis, lumbosacral region; M51.27 Other intervertebral disc displacement, lumbosacral region; M47.817 Spondylosis without myelopathy or radiculopathy, lumbosacral region; M43.8X5 Other specified deforming dorsopathies, thoracolumbar region; D18.09 Hemangioma of other sites; M89.38 Hypertrophy of bone, other site; G95.89 Other specified diseases of spinal cord; M25.48 Effusion, other site
CPT/HCPCS: 72148

== ENCOUNTER → 2018-07-26 | Outpatient (CLI) | payer MEDICARE ==
[~2018-07-26] MED LIST changes: +BUPIVACAINE MPF 0.25% 10 ML VIAL. ONE; +IOHEXOL 180 MG/ML 10 ML VIAL. ONE; +methylPREDNISolone ACETATE 80 MG/ML VIAL. ONE
--- NOTE | 2018-07-26 21:30 | PAIN ---
DATE OF SERVICE: 07/26/2018 PROGRESS NOTE FOR PAIN CLINIC: DIAGNOSES: 1. Lumbar radiculopathy with lumbar spinal stenosis, lumbar degenerative disk disease. 2. Myofascial pain. 3. Right knee joint pain with primary osteoarthritis. 4. Right shoulder joint pain with primary osteoarthritis, right shoulder joint. HISTORY OF PRESENT ILLNESS: The patient is a 78-year-old female who returns for followup status post lumbar epidural steroid injection x 1 with 75% improvement in her low back and left lower extremity pain. The patient reports her knee is doing much better. She had a knee joint injection 06/28/2018 and is 100% improved. Her main complaint today is right shoulder. We talked about this with her on her last visit. She has significant pain in the right shoulder with any weightbearing, any type of lifting and moving, repetitive motions, reaching above her head, reaching posteriorly, especially painful and anterior much better performed and without as much pain. The patient reports it is becoming worse though with time, even getting dressed, reaching her arm through a shirt sleeve or jacket sleeves has becoming more painful. The patient reports pain is sharp and aching and alternation in the right shoulder, sometimes stinging and shooting. The patient reports 0 is least, 4 at its worst and a 3 on average, and a 3 today. The patient reports no new motor or sensory deficits, no new changes. PHYSICAL EXAMINATION: VITAL SIGNS: The patient's blood pressure 140/91, pulse 68, respirations 18, temperature 97.6 degrees Fahrenheit. Height 5 feet 6 inches, weight is 182 pounds. GENERAL: The patient is awake, alert, oriented, appropriate, very pleasant demeanor. HEENT: Head is normocephalic, atraumatic. Extraocular movements are intact and symmetrical. Oral cavity, mucous membranes are moist and pink. Dentition is intact. NECK: Shows anterior throat supple without palpable lymphadenopathy noted. Swallow reflex symmetrical. CHEST: Shows normal with inspection. Breath sounds clear to auscultation bilaterally. HEART: Shows S1, S2 clear. No murmurs auscultated. ABDOMEN: Soft, nontender, nondistended. No palpable organomegaly is noted. No rebound or guarding demonstrated. BACK: Shows spine grossly in the midline. Normal appearing thoracic kyphosis, mild flattening of lumbar lordotic curvature. Lumbar paraspinous muscle shows symmetrical on inspection and palpation shows some mild tenderness in the inferior aspect of the paraspinous muscles only. The patient has good rotational motion of the lumbar spine. The patient's lower extremities show deep tendon reflexes at 2+ patellar, 1+ tendo-calcaneus tendons. Motor exam is strong with 5/5 dorsiflexion and extension. Upper extremities show DTR 2+ biceps and triceps tendons. Motor exam is strong with suspender maker strength rated 5/5. Bicep and tricep flexion approximately 4/5 on the right, 5/5 on the left. The patient's right shoulder shows significant tenderness with palpation over the anterior aspect of the shoulder as well as the posterior deltoid as well as the acromioclavicular area with mobility shows significant tenderness with abduction past about 45 degrees with significant pain in the shoulder itself, but without radiation. The patient shows pain with posterior extension of the arm as well and less so with anterior extension, trying to raise her arm or hand over her head to the side can only get about 45 degrees and has to use her left arm to help assist the arm in reaching higher. Options were discussed with the patient. The patient's old chart was reviewed as her current medication regimen updated. Current review of systems updated today as well. We will proceed with a right intraarticular glenohumeral joint injection with fluoroscopic guidance. Risks were again discussed including, but not limited to bleeding, infection, possibility of intravascular injection sequelae, spread of local anesthetic and numbness, side effects of steroid medication and poor results regarding pain control. The patient understands and wished to proceed. The patient will return to clinic in approximately 2 weeks for followup, was counseled on return appointment, activity level and side effects to be aware of. DIAGNOSIS: Right shoulder joint pain with primary osteoarthritis, right shoulder joint. PROCEDURE: Right shoulder glenohumeral joint injection using C-arm fluoroscopic guidance under sterile prep and drape using local anesthetic. MEDICATION INJECTED: A total of 80 mg Depo-Medrol plus 2 mL of 0.25% bupivacaine and 1.5 mL of contrast. CONDITION AT DISCHARGE: Stable. The patient tolerated the procedure well and had no complications. TURNER LEVY MD DR: ALBERTO/lopez JOB#: [id number] / [id number]
== END | disposition home or self-care (01) ==
LOC: PNCL 09:27
PROVIDERS: ATTEND Anesthesiology
DX: M19.011 Primary osteoarthritis, right shoulder (principal); M51.16 Intervertebral disc disorders with radiculopathy, lumbar region; M48.061 Spinal stenosis, lumbar region without neurogenic claudication; M17.11 Unilateral primary osteoarthritis, right knee; M79.18 Myalgia, other site
CPT/HCPCS: 20610; 77002; J1040; J3490; Q9965

== ENCOUNTER → 2018-08-11 | Outpatient (CLI) | payer MEDICARE ==
[~2018-08-11] MED LIST changes: -BUPIVACAINE MPF 0.25% 10 ML VIAL. ONE; +methylPREDNISolone ACETATE 40 MG/ML VIAL. ONE
--- NOTE | 2018-08-12 04:22 | PAIN ---
DATE OF SERVICE: 08/11/2018 PROGRESS NOTE FOR PAIN CLINIC: DIAGNOSES: 1. Lumbar radiculopathy with lumbar spinal stenosis, lumbar degenerative disk disease. 2. Myofascial pain. 3. Right shoulder joint pain and right knee joint pain with osteoarthritis. HISTORY OF PRESENT ILLNESS: The patient is a 78-year-old female who returns for followup status post right shoulder joint injection with near 100% improvement, also with lumbar epidural steroid injection with very good improvement as well. The patient reports her back and her legs are doing much better, but her feet are still tingling and feel tight as though she has a wrap or tight sock on each of her feet. The patient reports it is a 3 on a scale of 10, on average it is worst and a 2 on at its least and is a 2 today. The patient reports it is tingling and "feels tight" in both of the feet. Otherwise, she is doing very well, but responded very well to the injections, not only in her back, but with her shoulders as well. The patient reports no new motor or sensory deficits, no new bowel or bladder incontinence or other complaints. Describes it as tingling and tight once again. The patient reports she is sleeping well at night, it will occasionally awaken her from sleep, but only very rarely. She has been increasing her activity with greater distance walking and doing household activities, traveling with greater ease and comfort, occasionally awakens her from sleep, but not every night. The patient reports no new motor or sensory deficits, no new bowel or bladder incontinence or other complaints. PHYSICAL EXAMINATION: VITAL SIGNS: The patient's blood pressure is 139/87, pulse 67, respirations 16, temperature 98.2 degrees Fahrenheit, height is 5 feet 6 inches, weight is 180 pounds. GENERAL: The patient is awake, alert, oriented, appropriate, very pleasant demeanor. HEENT: Shows normocephalic, atraumatic. Extraocular movements intact and symmetrical. Oral cavity: Mucous membranes moist and pink. Dentition is intact. NECK: Shows anterior throat supple without palpable lymphadenopathy noted. Swallow reflex is symmetrical. CHEST: Shows normal with inspection. Breath sounds clear to auscultation bilaterally. HEART: Shows S1, S2 clear. No murmurs auscultated. ABDOMEN: Soft, obese, nontender, nondistended. BACK: Shows spine grossly in the midline. Slight exaggeration of thoracic kyphosis, some minor flattening of lumbar lordotic curvature. Lumbar paraspinous muscle shows symmetrical on inspection, with palpation shows some mild tenderness only in the low distribution and only very mildly. The patient has good rotational motion both laterally as well as extension and flexion without difficulty or pain reported. No tenderness over the sacrum or sacroiliac regions. EXTREMITIES: The patient's lower extremities show deep tendon reflexes 2+ in the patellar, 1+ tendo-calcaneus tendon. Motor exam is 5/5 with dorsiflexion, extension, quadriceps and hamstring flexion and symmetrical and equal bilaterally. Peripheral pulses are 1+ posterior tibial. No peripheral edema is noted. The patient has good sensation with sharp and dull discrimination in both of the feet, both anteriorly and posteriorly without significant difference in discrimination. Options were discussed with the patient. The patient's old chart was reviewed as her current medication regimen updated. Current review of systems updated today as well. We will proceed with a second in the series of lumbar epidural steroid injection today with fluoroscopic guidance. Risks were again discussed including, but not limited to bleeding, infection, possibility of epidural hematoma, subsequent neurological compromise, dural puncture headaches, spinal cord and/or nerve damage, side effects of steroid medication and poor results regarding pain control. The patient understands and wished to proceed. The patient will return to clinic in approximately 2 weeks for followup, was counseled as to return appointment, activity level and side effects to be aware of. DIAGNOSES: Lumbar radiculopathy with lumbar spinal stenosis, lumbar degenerative disk disease. PROCEDURE: Lumbar epidural steroid injection, translaminar approach L4-L5 level using C-arm fluoroscopic guidance under sterile prep and drape using local anesthetic. MEDICATION INJECTED: A total of 120 mg Depo-Medrol plus 10 mL preservative-free normal saline and 2 mL of contrast. CONDITION AT DISCHARGE: Stable. The patient tolerated the procedure well, had no complications. TURNER LEVY MD DR: ALBERTO/lopez JOB#: [id number] / [id number]
== END ==
LOC: PNCL 09:27
PROVIDERS: ATTEND Anesthesiology
DX: M51.16 Intervertebral disc disorders with radiculopathy, lumbar region (principal); M48.061 Spinal stenosis, lumbar region without neurogenic claudication; M19.011 Primary osteoarthritis, right shoulder; M17.11 Unilateral primary osteoarthritis, right knee
CPT/HCPCS: 62323; J1030; J1040; Q9965

== ENCOUNTER → 2018-10-10 | Outpatient (CLI) | payer MEDICARE ==
[~2018-10-10] MED LIST changes: +ATOR20TA58 PO; +CHOL100013 PO; +CITA20TA6 PO; +CYAN500L4 SL; +DOCU50CA9 PO; -IOHEXOL 180 MG/ML 10 ML VIAL. ONE; +OMEP20CA10 PO; -methylPREDNISolone ACETATE 40 MG/ML VIAL. ONE; -methylPREDNISolone ACETATE 80 MG/ML VIAL. ONE
[2018-10-10 16:05] LABS: BASO # 0.1 x10^3/uL (0.0-0.2); BASO % 1 % (0-3); EOS # 0.1 x10^3/uL (0.0-0.7); EOS % 1 % (0-3); HEMATOCRIT 46.3 % (36.0-47.0); HEMOGLOBIN 15.6 g/dL (12.0-15.5); LYMPH # 1.7 x10^3/uL (1.0-4.8); LYMPH % 17 % (24-48); MEAN CORPUSCULAR HEMOGLOBIN 29 pg (25-35); MEAN CORPUSCULAR HGB CONC 34 g/dL (31-37); MEAN CORPUSCULAR VOLUME 86 fL (79-100); MONO # 0.8 x10^3/uL (0.0-1.1); MONO % 8 % (0-9); NEUT # 7.1 x10^3/uL (1.8-7.7); NEUT % 73 % (31-73); PLATELET COUNT 207 x10^3/uL (140-400); RED BLOOD COUNT 5.35 x10^6/uL (3.50-5.40); RED CELL DISTRIBUTION WIDTH 15.7 % (11.5-14.5); WHITE BLOOD COUNT 9.8 x10^3/uL (4.0-11.0)
[2018-10-10 16:41] LABS: ALBUMIN 3.8 g/dL (3.4-5.0); CALCIUM 9.1 mg/dL (8.5-10.1); CREATININE 0.8 mg/dL (0.6-1.0); GFR 69.2; POTASSIUM 3.7 mmol/L (3.5-5.1); TOTAL BILIRUBIN 0.5 mg/dL (0.2-1.0); TOTAL PROTEIN 7.5 g/dL (6.4-8.2)
== END | disposition home or self-care (01) ==
LOC: SURGPAT 13:19
PROVIDERS: ATTEND Neurological Surgery
DX: Z01.818 Encounter for other preprocedural examination (principal); M48.062 Spinal stenosis, lumbar region with neurogenic claudication; M71.30 Other bursal cyst, unspecified site
CPT/HCPCS: 36415; 80053; 85025; 87641

== ENCOUNTER 2018-10-19 09:45 | Inpatient (IN) | payer MEDICARE ==
--- NOTE | 2018-10-18 19:55 | HP ---
ADMIT DATE: 10/19/2018 PREOPERATIVE HISTORY AND PHYSICAL DATE OF SURGERY: 10/19/2018. HISTORY OF PRESENT ILLNESS: The patient is a pleasant 78-year-old who is having difficulty with low back pain and pain that radiates in her left posterior thigh and leg. She notes numbness in both of her feet. The problem has been present for many years. It has been worse over the last year or two. She says with standing her pain is a 10/10. She states her pain is a 3/10 right now. She takes tramadol and Celebrex, which she says does help her. She has had epidural steroid injections, which she says lasts for about 1 week. She had physical therapy a few months ago and she said she felt that made the problem worse. She does not notice significant weakness, the principal problem is pain. PAST MEDICAL HISTORY: Arthritis, hypertension, kidney stones, shingles, thyroid disease. PAST SURGICAL HISTORY: Cholecystectomy in 1968, hysterectomy in 1965. FAMILY HISTORY: Cancer, diabetes, heart problems and disease, hypertension, [place] at an early age. SOCIAL HISTORY: Retired. . Never exercises. Denies substance abuse. Former smoker. Drinks alcohol 1-2 times per year. Drinks coffee and tea daily. ALLERGIES: No known drug allergies. CURRENT MEDICATIONS: Omeprazole, citalopram, hydrobromide, quinapril, amlodipine, celecoxib, tramadol D3 adult, B12, vitamin. REVIEW OF SYSTEMS: A 12-point review of systems was obtained and is noncontributory except for that mentioned above. PHYSICAL EXAMINATION: NEUROSURGERY EXAMINATION: GENERAL APPEARANCE: Alert, pleasant, no acute distress. HEAD: Normocephalic and atraumatic. SKIN: Warm and dry. MUSCULOSKELETAL: Lumbar paraspinal muscle bulk is normal, restricted range of motion of the lumbar spine, [id number] tenderness of lower lumbar spine with palpation, normal range of motion of the lower extremities bilaterally. EXTREMITIES: No clubbing, cyanosis, or edema. NEUROLOGIC: Alert and oriented x 3, normal recent and remote memory. Strength 5/5 in bilateral lower extremities, sensory was intact to light touch in bilateral lower extremities except for decrease in the anterior lateral leg and dorsum of the left foot, reflexes are present and symmetric in the lower extremities bilaterally, positive straight leg raising on the left, negative straight leg raising on the right, antalgic gait favoring her left leg. IMAGING: I reviewed a lumbar MRI scan. On that study, there is a large cystic mass in the spinal canal extending from superior L4 to mid L5 on the left side. There is appearance of a large synovial cyst. ASSESSMENT: 1. Radiculopathy, lumbar region. 2. Other bursal cyst, unspecified site. PLAN: She has significant radiculopathy related to a large synovial cyst at L4-L5. I recommended lumbar microsurgery to deal with this problem. I did discuss this with her in detail. She would like to go ahead. We will make the arrangements. NASREEN REINOSO MD DR: DEIRDRE/lopez JOB#: [id number] / [id number] WALLACE
[2018-10-19] VITALS (8 sets, daily range): BP systolic 38–157; BP diastolic 61–72
[~2018-10-19] VITALS: Ht 167.6 cm; Wt 80.7 kg
[~2018-10-19 09:45] MED LIST changes: +BACITRACIN 50,000 UNIT in IV NORMAL SALINE 1000ML BAG 1,000 ML IRR ONE; +HYDROmorphone 2 MG/ML VIAL IV PRN; +IV RINGERS,LACTATED 1000ML 1,000 ML IV SCH; +PROCHLORPERAZINE 10 MG/2 ML VIAL. IV PRN; +fentaNYL PF VIAL 100 MCG/2 ML VIAL IV PRN
[2018-10-19] MEDS ORDERED: GELATIN SPONGE SIZE 12-7MM SPONGE. ONE (09:49)
[2018-10-19] MEDS ORDERED: THROMBIN TOPICAL 5,000 UNIT VIAL. ONE (09:49)
[2018-10-19] MEDS ORDERED: BUPIVAC MPF-EPI 0.5%-1:200000 30 ML VIAL. ONE (09:49)
[2018-10-19] MEDS ORDERED: KETOROLAC 60 MG/2 ML INJ FOR OR. ONE (09:49)
[2018-10-19] MEDS ORDERED: ROCURONIUM 50 MG/5 ML VIAL. ONE (10:40)
[2018-10-19] MEDS ORDERED: GLYCOPYRROLATE 1 MG/5 ML VIAL. ONE (10:40)
[2018-10-19] MEDS ORDERED: REMIFENTANIL 2 MG VIAL. IV ONE (10:41)
[2018-10-19] MEDS ORDERED: DEXAMETHASONE SOD PHOS 4 MG/ML VIAL ONE ×4 (10:45→11:00)
[2018-10-19] MEDS ORDERED: LIDOCAINE 2% PF 5 ML VIAL. ONE (10:45)
[2018-10-19] MEDS ORDERED: PROPOFOL 20 ML IV ONE (10:45)
[2018-10-19] MEDS ORDERED: PROPOFOL 50 ML IV ONE (10:45)
[2018-10-19] MEDS ORDERED: ONDANSETRON PF 4 MG/2 ML VIAL. ONE (10:45)
[2018-10-19] MEDS ORDERED: DEXAMETHASONE SOD PHOS 20 MG/5 ML VIAL. ONE (10:45)
[2018-10-19] MEDS ORDERED: PHENYLEPHRINE 10 MG/ML VIAL. ONE (10:45)
[2018-10-19] MEDS ORDERED: DESFLURANE > 120 MINUTES IH ONE (10:59)
[2018-10-19] MEDS ORDERED: KETOROLAC 30 MG/ML INJ FOR OR. INJ ONE (12:23)
[2018-10-19] MEDS ORDERED: NEOSTIGMINE METHYLSULFATE 5 MG/5 ML SYRINGE. ONE (13:28)
[2018-10-19] MEDS ORDERED: fentaNYL PF VIAL 100 MCG/2 ML VIAL ONE (14:12)
[2018-10-19] MEDS ORDERED: NALOXONE 0.4 MG/ML VIAL. IV PRN (14:30)
[2018-10-19] MEDS ORDERED: CALCIUM CARBONATE 500 MG TAB.CHEW PO PRN (14:30)
[2018-10-19] MEDS ORDERED: MAG HYDROX/ALUMINUM HYD/SIMETH 30 ML ORAL.SUSP PO PRN (14:30)
[2018-10-19] MEDS ORDERED: ONDANSETRON PF 4 MG/2 ML VIAL. IV PRN (14:30)
[2018-10-19] MEDS ORDERED: fentaNYL PF VIAL 100 MCG/2 ML VIAL IV PRN (14:30)
[2018-10-19] MEDS ORDERED: diphenhydrAMINE HCL 25 MG CAPSULE PO PRN (14:30)
[2018-10-19] MEDS ORDERED: ACETAMINOPHEN 325 MG TABLET. PO PRN (14:30)
[2018-10-19] MEDS ORDERED: MAGNESIUM HYDROXIDE 2,400 MG/30 ML ORAL.SUSP. PO PRN (14:30)
[2018-10-19] MEDS ORDERED: 0.9 % SODIUM CHLORIDE 10 ML DISP.SYRIN. IV PRN (14:30)
[2018-10-19] MEDS: fentaNYL PF VIAL 100 MCG/2 ML VIAL IV PRN ×2 (14:40→15:12)
[2018-10-19] MEDS: MORPHINE SULFATE 2 MG/ML VIAL. IV PRN ×2 (14:45→15:13)
[2018-10-19] MEDS ORDERED: traMADol 50 MG TABLET PO PRN (15:45)
[2018-10-19] MEDS: POTASSIUM CL 20MEQ D5-0.45NACL 1,000 ML IV SCH (16:04)
[2018-10-19] MEDS: HYDROcodone/APAP 5/325MG 1 TAB TABLET PO PRN ×2 (16:06→22:59)
--- NOTE | 2018-10-19 18:26 | NUR ---
Patient arrived to the floor from PACU in a bed around 1546. Daughter and at bedside. Patient rating her pain around a 7 with PRN medication given. No nausea noted upon admission. IV infusing properly. Patient is on 2L of oxygen per [place] at this time. States leg leg feels "heavy with numbness and tingling" which she states is her baseline prior to surgery. Will continue to monitor.
--- NOTE | 2018-10-19 18:31 | NUR ---
Patient and family state her pharmacy is within her Primary Care office which is called "[facility]" located at [address] [place] [address]. #[phone]. Preferred Pharmacy updated in system
[2018-10-19] MEDS: DOCUSATE SODIUM 100 MG CAPSULE. PO SCH (20:59)
[2018-10-19] MEDS ORDERED: ATORVASTATIN CALCIUM 20 MG TABLET PO SCH (21:00)
[2018-10-19] MEDS ORDERED: ACETAMINOPHEN 500 MG TABLET PO SCH (21:00)
[2018-10-20 03:00] VITALS: BP 157/79
[2018-10-20] MEDS: HYDROcodone/APAP 5/325MG 1 TAB TABLET PO PRN ×3 (03:31→12:42)
[2018-10-20] MEDS: POTASSIUM CL 20MEQ D5-0.45NACL 1,000 ML IV SCH (03:32)
[2018-10-20 06:32] VITALS: BP 129/67
[2018-10-20] MEDS ORDERED: PANTOPRAZOLE 40 MG TABLET.DR. PO SCH (07:30)
[2018-10-20] MEDS: DOCUSATE SODIUM 100 MG CAPSULE. PO SCH (08:20)
[2018-10-20 08:22] VITALS: BP 151/72
--- NOTE | 2018-10-20 08:33 | NUR ---
up in chair for breakfast. daughter at bedside. states she takes her pills at bedtime except for her Celebrex and stomach pill; they were given. she will take the rest tonight. her dressing has a scant amount of drainage.
[2018-10-20] MEDS ORDERED: CHOLECALCIFEROL (VITAMIN D3) 1,000 UNIT TABLET PO SCH (09:00)
[2018-10-20] MEDS ORDERED: LISINOPRIL 20 MG TABLET PO SCH (09:00)
[2018-10-20] MEDS ORDERED: CELECOXIB 100 MG CAPSULE. PO SCH (09:00)
[2018-10-20] MEDS ORDERED: CITALOPRAM 20 MG TABLET. PO SCH (09:00)
[2018-10-20] MEDS ORDERED: CYANOCOBALAMIN (VITAMIN B-12) 1,000 MCG TABLET. PO SCH (09:00)
[2018-10-20] MEDS ORDERED: DOCUSATE SODIUM 50 MG PO SCH (09:00)
[2018-10-20] MEDS ORDERED: amLODIPine BESYLATE 10 MG TABLET PO SCH (09:00)
[2018-10-20 11:03] VITALS: BP 119/56
--- NOTE | 2018-10-20 11:39 | NUR ---
SS following for discharge planning. SS reviewed pt chart. Pt is from home with spouse and is currently on room air. PT ordered. SS will await PT evaluation and recommendations and will proceed accordingly with discharge planning.
[2018-10-20] MEDS ORDERED: HYDR-2761 PO (11:56)
--- NOTE | 2018-10-20 11:58 | DISCH ---
DISCHARGE INSTRUCTIONS Condition on Discharge Condition on Discharge: Stable Activity After Discharge Activity Instructions for Disc: Activity as tolerated, Avoid exertion Other activity instructions: no driving for a week Bathing Instructions: Shower-keep dressing dry Lifting Instructions after Dis: No heavy lifting, No pulling or pushing, Do not lift >10 pounds Diet after Discharge Additional Diet Restrictions: resume home diet Wound Incision Care Wound/Incision Care: Ice to area for comfort Other wound/incision instructi: may remove dressing in 48 hrs if dry then may shower, no soaking Contacting the after DC Call your doctor for: Concerns you may have Follow-Up Follow up with: Dr. Reinoso's nurse in 2 weeks [phone] NASREEN REINOSO MD Oct 20, 2018 11:58
--- NOTE | 2018-10-20 13:32 | NUR ---
reviewed written discharge instructions with patient and daughter. had demonstrated dressing change; medications and side effects and when to take next medications and resume. reviewed restrictions to activities of daily living such as bathing exercise and diet. all questions answered; scripts given.
--- NOTE | 2018-10-21 17:06 | PATHOLOGY ---
[facility] Accession Number: [id number] . 01 Material submitted: . PART A: back - LUMBAR DECOMPRESSION PART B: back - LUMBAR SYNOVIAL CYST . 01 Clinician provided ICD-10: . 01 Clinical history: . Lumbar radiculopathy, synovial cyst, stenosis . 02 Diagnosis: A. Segments of fibrocartilaginous tissue and bone, lumbar decompression: - Degenerative changes of fibrocartilaginous tissue. . B. Segments of fibrocartilaginous, synovial, and skeletal muscle tissue and bone, lumbar synovial cyst: - Degenerative changes of fibrocartilaginous tissue with focal synovial tissue consistent with synovial cyst. (JPM:outside plant cable engineer; 10/21/2018) MBR/10/21/2018 . 02 Electronically signed: . Ross Briggs MD, Pathologist NPI- [id number] . 01 Gross description: . A. The specimen is received in formalin, labeled "Magalie, Rosie, lumbar decompression", are multiple irregular fragments of suh-yellow and gritty tissue possibly admixed with bone spicule measuring 4.7 x 3.0 x 1.0 cm in aggregate. Representatively submitted in A1, after decalcification. . B. The specimen is received in formalin, labeled "Magalie, Rosie, lumbar synovial cyst", are multiple irregular fragments of suh-yellow and gritty tissue possibly admixed with bone spicule measuring 1.5 x 1.5 x 0.4 cm in aggregate. Entirely submitted in B1 after decalcification. (SWS; 10/20/2018) SHS/SHS . 02 Pathologist provided ICD-10: M51.36, M71.38 . 02 CPT . 542458, 284477, [id number], [id number] Specimen Comment: A courtesy copy of this report has been sent to Specimen Comment: [phone], . Specimen Comment: Report sent to and Performed at: 01 [facility] [address] [facility] [address], [place] [id number] MD Patrick Khan MD Phone: [phone] Performed at: [address] [id number] MD Ross Briggs MD Phone: [phone]
--- NOTE | 2018-10-27 15:46 | OP ---
DATE OF SURGERY: 10/19/2018 PREOPERATIVE DIAGNOSES: Lumbar spinal stenosis and large synovial cyst, L4-L5. POSTOPERATIVE DIAGNOSES: Lumbar spinal stenosis and large synovial cyst, L4-L5. OPERATION PERFORMED: Laminectomy L4-L5 with removal of dorsal synovial cyst. The operation was done with EMG monitoring, SSEP monitoring, fluoroscopy, microscopic dissection. SURGEON: Brandin Reinoso M.D. SEWING MACHINE ADJUSTER: Scarlett Jaimes assisted with the surgery. She assisted with the exposure, the microdecompression as well as the closure. OPERATIVE INDICATIONS: The patient is a pleasant 78-year-old woman who developed severe intractable back and left leg pain. On imaging studies, there was a large synovial cyst, which extended from L4 through L5 and was associated with significant stenosis and I recommended a laminectomy and removal of the synovial cyst. I discussed the surgery with her in detail, she understood and she wished to go ahead. DESCRIPTION OF PROCEDURE: Following general endotracheal anesthesia, the patient was positioned prone on the Hernandez table. Lumbar region prepped and draped in standard fashion. ABBEY hose and AV impulse boots were applied for DVT prophylaxis. The microscope was draped. Fluoroscopy was draped and brought into field. Monitoring was established. Ancef 2 grams was given less than 1 hour prior to initiation of the surgery. Using fluoroscopic guidance, a midline incision was made extending from superior L4 to inferior L5. I dissected down through skin and subcutaneous tissue, reflected the paraspinal muscles and placed self-retaining retractors. I brought in the microscope and the remainder of surgery done with the microscope using microscopic technique. I used a large conical bur on the high speed air drill, I burred the spinous process away and trimmed this also with the Leksell and Adson rongeurs and then drilled and thinned the lamina of L4 and L5 bilaterally. I then brought in the high speed air drill with a small straight bur and using this, then I continued drilling down the ligamentum flavum and worked laterally, bilaterally to obtain an excellent wide laminectomy and then began to peel the ligamentum flavum. As I worked, the synovial cyst became apparent compressing markedly down on the dura, and I peeled the synovial cyst away from inferior to superior. Working laterally bilaterally and fully decompressed the entire region. At this point, I explored carefully. The synovial cyst was completely removed. The stenosis was completely relieved. I irrigated copiously with antibiotic solution. I did use small amounts of bone wax during the operation for hemostasis as well as bipolar cautery. I removed the retractor, obtained hemostasis in the muscle and I closed the wound in several layers after irrigation and then the skin was closed with 4-0 subcuticular stitch. The operation went very well and the patient was awakened uneventfully, taken to recovery room in excellent condition with normal strength in lower extremities. I was quite pleased with the surgery. BRANDIN REINOSO MD DR: DEIRDRE/lopez JOB#: [id number] / [id number] [place]ACE
== END 2018-10-20 13:00 | disposition home or self-care (01) | DRG 517 ==
LOC: OPSVCIP 09:45 → 4 SOUTHEST 15:40
PROVIDERS: ADMIT Neurological Surgery; ATTEND Neurological Surgery
PROC: 4A11X4G Monitoring of Peripheral Nervous Electrical Activity, Intraoperative, External Approach (ICD-10-PCS; 2018-10-19)
PROC: 01NB0ZZ Release Lumbar Nerve, Open Approach (ICD-10-PCS; principal; 2018-10-19 11:30)
DX: M48.061 Spinal stenosis, lumbar region without neurogenic claudication (principal); M54.16 Radiculopathy, lumbar region; M71.38 Other bursal cyst, other site; I10 Essential (primary) hypertension; M19.90 Unspecified osteoarthritis, unspecified site; Z90.49 Acquired absence of other specified parts of digestive tract; Z87.442 Personal history of urinary calculi; Z83.3 Family history of diabetes mellitus; Z82.49 Family history of ischemic heart disease and other diseases of the circulatory system; Z87.891 Personal history of nicotine dependence
CPT/HCPCS: 76000; 88304; 88311; A7015; J0696; J0780; J1100; J1885; J2001; J2270; J2405; J2704; J2710; J3010; J3490; J7030; J7120; 97116; 97530; G0378

== ENCOUNTER → 2018-12-27 | Outpatient (CLI) | payer MEDICARE ==
[~2018-12-27] MED LIST changes: -BACITRACIN 50,000 UNIT in IV NORMAL SALINE 1000ML BAG 1,000 ML IRR ONE; +HYDR-2761 PO; -HYDROmorphone 2 MG/ML VIAL IV PRN; -IV RINGERS,LACTATED 1000ML 1,000 ML IV SCH; -PROCHLORPERAZINE 10 MG/2 ML VIAL. IV PRN; -fentaNYL PF VIAL 100 MCG/2 ML VIAL IV PRN
--- NOTE | 2018-12-27 09:54 | RAD ---
DATE: 12/27/2018 EXAM: MAMMO BEENA DIAG LT HISTORY: Left breast indeterminate microcalcifications COMPARISON: Left mammogram 06/29/2018 This study was interpreted with the benefit of Computerized Aided Detection (CAD). Breast Density: SCATTERED The breast parenchyma shows scattered fibroglandular densities. Breast parenchyma level B. FINDINGS: Left CC and MLO views were performed. Left breast tomosynthesis was performed in CC and MLO projections. Spot magnification left cc view was performed. Stable 4 mm group of punctate medical stations are identified in the outer left breast at posterior depth. Findings remain indeterminate, probably benign given six-month stability. Additional six-month follow-up is recommended to ensure stability. At that time, patient will be due for hilar mammogram. No suspicious masses or architectural distortion. IMPRESSION: Probably benign medical stations left breast. BI-RADS CATEGORY: 3 PROBABLY BENIGN FINDING(S)-SHORT INTERVAL FOLLOW-UP SUGGESTED RECOMMENDED FOLLOW-UP: 6M 6 MONTH FOLLOW-UP PQRS compliance statement: Patient information was entered into a reminder system with a target due date June 27, 2018 for the next mammogram. Mammography is a sensitive method for finding small breast cancers, but it does not detect them all and is not a substitute for careful clinical examination. A negative mammogram does not negate a clinically suspicious finding and should not result in delay in biopsying a clinically suspicious abnormality. "Our facility is accredited by the [employer] Mammography Program."
--- NOTE | 2018-12-27 17:28 | RAD ---
Thyroid ultrasound study Clinical indications: Thyroid nodules COMPARISON: December 30, 2017. FINDINGS: The longitudinal and AP and transverse dimensions of the right lobe are 4.9 cm and 2.0 cm and 1.7 cm respectively. The longitudinal and AP and transverse dimensions of left lobe are 5.1 cm and 1.8 cm and 1.6 cm respectively. Multiple nodules are seen. The largest on the right side is within the mid aspect measuring 10 mm. The largest on the left side is located within the mid aspect and combined cystic and solid in nature and measures 14 mm. There as been no significant change in size of either one of these nodules. The isthmus measures 4 mm in thickness. IMPRESSION: No significant change in bilateral thyroid nodules. Electronically signed by: Ke Martinez MD (12/27/2018 5:25 PM) [id number]
== END | disposition home or self-care (01) ==
LOC: US 08:28
PROVIDERS: ATTEND Nurse Practitioner Family
DX: Z12.31 Encounter for screening mammogram for malignant neoplasm of breast (principal); N64.89 Other specified disorders of breast; E04.1 Nontoxic single thyroid nodule
CPT/HCPCS: 76536; 77065; G0279; 77061

== ENCOUNTER → 2019-01-04 | Outpatient (CLI) | payer MEDICARE ==
--- NOTE | 2019-01-04 18:01 | RAD ---
CERVICAL SPINE 5V History: Cervical pain Comparison: None. Findings: 5 views of the cervical spine are submitted. Cervical vertebral body stature is maintained. There is very mild grade 1 anterior spondylolisthesis C3-C4. There is moderate to severe degenerative disc disease at C4-5 and to a somewhat lesser degree at C5-6 and C6-7. Atlantoaxial distance is within normal limits. There is multilevel uncovertebral degenerative change contributing to multilevel neural foramina compromise greatest on the right at C4-5, C5-6, and C6-7 and on the left C3-4, C4-5, C6-7. There is multilevel cervical facet degenerative change. There is atherosclerotic calcification of the carotid arteries in the neck bilaterally, also near aortic arch. There is thoracic dextroscoliosis not fully evaluated. There is adequate alignment of lateral masses of C1 relative to C2. Occipital condylar C1 articulation is maintained. Impression: 1. There is multilevel degenerative disc disease greatest C4-5 through C6-7. There is multilevel cervical facet and uncovertebral degenerative change. Electronically signed by: Krzysztof Hui MD (01/04/2019 5:58 PM) [id number]
== END | disposition home or self-care (01) ==
LOC: RAD 07:57
PROVIDERS: ATTEND Nurse Practitioner Family
DX: M50.321 Other cervical disc degeneration at C4-C5 level (principal); M43.12 Spondylolisthesis, cervical region; M47.812 Spondylosis without myelopathy or radiculopathy, cervical region
CPT/HCPCS: 72050

== ENCOUNTER → 2019-01-12 | Outpatient (CLI) | payer MEDICARE ==
--- NOTE | 2019-01-13 08:32 | RAD ---
EXAM: Lumbar spine 3 views with flexion/extension. HISTORY: Low back pain after surgery. COMPARISON: None. FINDINGS: At neutral, there is slight retrolisthesis at L2-3. This does not change on flexion/extension. There is straightening of the normal lordosis. There is hypomobility on both flexion and extension. Degenerative disc disease is moderate from L2 through L5. Atherosclerotic calcifications are noted. Postsurgical changes are noted within the anterior abdomen, partially visualized. IMPRESSION: 1. Slight retrolisthesis at L2-3. No abnormal translational motion. 2. Moderate degenerative disc disease from L2 through L5. Electronically signed by: Paola Mcdonnell MD (01/13/2019 8:29 AM) [facility]
== END | disposition home or self-care (01) ==
LOC: RAD 10:38
PROVIDERS: ATTEND Neurological Surgery
DX: M51.36 Other intervertebral disc degeneration, lumbar region (principal); M40.46 Postural lordosis, lumbar region
CPT/HCPCS: 72100

== ENCOUNTER → 2019-01-17 | Outpatient (CLI) | payer MEDICARE ==
[~2019-01-17] MED LIST changes: +GADOTERATE 7.5 MMOL/15ML VIAL. IVP ONE
--- NOTE | 2019-01-17 12:43 | RAD ---
MRI Lumbar Spine without and with contrast History: Low back pain, post laminectomy Technique: Multiplanar, multi sequential pre and postcontrast MR imaging was performed of the lumbar spine. Comparison: July 15, 2018 Findings: Lumbar vertebral body stature is similar. There are Schmorl's nodes most notable inferiorly of L2 and L3. There is again moderate to severe L3-4 and L4-5 degenerative disc disease, to lesser degree at L2-3. There is trace L3-4 endplate edema likely reactive/degenerative in etiology. 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 AP alignment is similar, negligible posterior subluxation L3 relative to L4 and L2 relative to L3. Conus terminates near the superior aspect of L1. There is no nodular enhancement of the conus or cauda equina. There is mild levoscoliosis centered near left mid lumbar spine. There are small nerve root sleeve cyst such as in the neural foramina bilaterally at T11-12 and T12-L1 and on the right at L1-2. There is hemangioma of the right L1 vertebral body. There are T2 hyperintense foci of the visualized left kidney most likely due to cysts with the largest at least 5.6 cm, kidneys not fully evaluated. L1-L2: Spinal canal and neural foramina are adequate. There is mild buckling of the ligamentum flavum. L2-L3: There is mild buckling of the ligamentum flavum and facet degenerative change. There is minimal disc osteophyte complex. Combination of findings results in overall mild spinal stenosis including narrowing of the far lateral recesses bilaterally as seen previously. Neural foramina are overall adequate. L3-L4: There is [id number] right and mild left buckling of the ligamentum flavum. There is minimal disc osteophyte complex as seen previously slightly indenting the ventral thecal sac greater in the right lateral recess. There is similar mild narrowing of the far right lateral recess. Neural foramina are not significantly narrowed. L4-L5: There has been interval left laminectomy. There is mild buckling of the residual right ligamentum flavum. There is mild facet degenerative change on the right. There is minimal disc osteophyte complex slightly indenting the ventral thecal sac. Previously there was a much greater degree of spinal stenosis including left lateral recess stenosis, residual minimal narrowing of the far right lateral recess on this exam. There is mild to moderate narrowing of left neural foramen by disc osteophyte complex and facet, right neural foramen not significantly narrowed although disc osteophyte complex near the extraforaminal right L4 nerve root without significant displacement. L5-S1: There is mild to moderate facet degenerative change on the left, to lesser degree on the right. Spinal canal is adequate. Right neural foramen is adequate. Facet degenerative change contributes to moderate to severe posterior narrowing of left neural foramen with contact of the exiting left L5 nerve root as seen previously. Impression: 1. Comparing with the previous June 2018 exam, there has been left L4-5 laminectomy, left lateral recess now adequate at this level. There is mild lateral recess stenosis as described such as on the right at L4-5 and L3-4 and also mild spinal stenosis at L2-3. 2. There is again moderate to severe narrowing of the left L5-S1 neural foramen by facet, lesser degree of narrowing on the left at L4-5. 3. There is again multilevel degenerative disc disease greatest L3-4 and L4-5. There is multilevel spondylosis and facet degenerative change. There is mild lumbar levoscoliosis. Electronically signed by: Krzysztof Hui MD (01/17/2019 12:40 PM) [facility]
== END | disposition home or self-care (01) ==
LOC: MRI 09:25
PROVIDERS: ATTEND Neurological Surgery
DX: M51.36 Other intervertebral disc degeneration, lumbar region (principal); M48.07 Spinal stenosis, lumbosacral region; M47.817 Spondylosis without myelopathy or radiculopathy, lumbosacral region; M25.78 Osteophyte, vertebrae
CPT/HCPCS: 72158; A9575

== ENCOUNTER → 2019-01-19 | Outpatient (CLI) | payer MEDICARE ==
[~2019-01-19] MED LIST changes: -GADOTERATE 7.5 MMOL/15ML VIAL. IVP ONE
--- NOTE | 2019-01-19 17:19 | RAD ---
DUPLEX SONOGRAPHY OF THE PERIPHERAL ARTERIAL SYSTEM OF BOTH LOWER EXTREMITIES Clinical indications: Decreased pedal pulses. Findings: Duplex sonography of the peripheral arterial system of both lower extremities including bruner scale and color flow and spectral waveform analysis was performed. Biphasic No occlusive disease is seen. There is plaque formation scattered throughout both lower extremities but no flow-limiting stenosis is identified. The measurements were performed using the NASCET criteria. Peak systolic flow velocities are as follows: Right leg: common femoral artery- 181 cm/sec, profunda femoral artery -53 cm/sec, proximal superficial femoral artery -120 cm/sec, mid superficial femoral artery -133 cm/sec, distal superficial femoral artery- 95 cm/sec, popliteal artery -81 cm/sec, proximal posterior tibial artery- 73 cm/sec, distal posterior tibial artery- 93 cm/sec, peroneal artery- 65 cm/sec, anterior tibial artery- 117 cm/sec, dorsalis pedis artery -77 cm/sec. Left leg: common femoral artery- 183 cm/sec, profunda femoral artery -160 cm/sec, proximal superficial femoral artery- 175cm/sec, mid superficial femoral artery- 187 cm/sec, distal superficial femoral artery- 106 cm/sec, popliteal artery -82 cm/sec, proximal posterior tibial artery -103 cm/sec, distal posterior tibial artery- 146 cm/sec, peroneal artery -76 cm/sec, anterior tibial artery -74 cm/sec, dorsalis pedis artery- 80 cm/sec. Impression: No occlusive disease. Plaque formation is seen scattered throughout both lower extremities but no flow-limiting stenosis is identified. Electronically signed by: Ke Martinez MD (01/19/2019 5:16 PM) [facility]
== END | disposition home or self-care (01) ==
LOC: US 15:23
PROVIDERS: ATTEND Podiatrist
DX: I70.293 Other atherosclerosis of native arteries of extremities, bilateral legs (principal)
CPT/HCPCS: 93925

== ENCOUNTER → 2019-01-24 | Outpatient (CLI) | payer MEDICARE ==
--- NOTE | 2019-01-24 13:08 | RAD ---
MRI of the cervical spine without contrast 01/24/2019 CLINICAL HISTORY: Neck pain which radiates down the right arm. TECHNIQUE: Unenhanced T1-weighted, T2-weighted and inversion recovery sagittal and gradient echo and T2-weighted axial images of the cervical spine were obtained. FINDINGS: Comparison is made to radiographs of the cervical spine dated 10/04/2018. Mild lateral curvature of the cervical spine is seen convex to the left. There is straightening of the normal cervical lordosis. Degenerative signal changes are seen involving all the disks of the cervical spine. Loss of height of the C4-5, C5-6 and C6-7 discs is noted. Degenerative signal changes are seen within the marrow surrounding these discs. No area of abnormal signal intensity is seen involving the cervical spinal cord. At the C2-3 disc space there is a mild generalized disc bulge. Degenerative changes are seen involving the uncovertebral and facet joints bilaterally. These findings do not result in significant central spinal canal or neural foraminal stenosis. At the C3-4 disc space there is a mild generalized disc bulge. Degenerative changes are seen involving the uncovertebral and facet joints, left greater than right. These findings efface the anterior and posterior CSF resulting in mild central spinal canal stenosis without evidence of cord impingement. Mild to moderate left greater than right neural foraminal stenosis is seen. At the C4-5 disc space there is a mild generalized disc bulge. Degenerative changes are seen involving the uncovertebral and facet joints, right greater than left. These findings efface the anterior and posterior CSF resulting in mild central spinal canal stenosis without evidence of cord impingement. Mild to moderate right neural foraminal stenosis is seen. The left neural foramen is patent. At the C5-6 disc space there is a mild generalized disc bulge. Degenerative changes are seen involving the uncovertebral and facet joints, right greater than left. These findings when combined efface the anterior CSF resulting in mild central spinal canal stenosis without evidence of cord impingement. Mild to moderate right neural foraminal stenosis is seen. The left neural foramen is patent. At the C6-7 disc space there is a moderate generalized disc bulge. Degenerative changes are seen involving the uncovertebral and facet joints bilaterally. These findings efface the anterior CSF and posterior CSF resulting in mild central spinal canal stenosis with minimal cord impingement. Mild to moderate right greater than left neural foraminal stenosis is seen. At the C7-T1 disc space there is a minimal generalized disc bulge. Degenerative changes are seen involving the facet joints bilaterally. These findings do not result in significant central spinal canal or neural foraminal stenosis. IMPRESSION: Degenerative changes are seen throughout the cervical spine. These findings result in mild central spinal canal stenosis at C3-4, C4-5 and C5-6 without evidence of cord impingement and mild central spinal canal stenosis with minimal cord impingement at C6-7. Mild to moderate left greater than right neural foraminal stenosis is seen at C3-4. Mild to moderate right neural foraminal stenosis is seen at C4-5 and C5-6. Mild to moderate right greater than left neural foraminal stenosis is seen at C6-7. Electronically signed by: Mu Floyd MD (01/24/2019 1:05 PM) [facility]
== END | disposition home or self-care (01) ==
LOC: MRI 09:23
PROVIDERS: ATTEND Nurse Practitioner Family
DX: M50.03 Cervical disc disorder with myelopathy, cervicothoracic region (principal); M48.02 Spinal stenosis, cervical region; M47.12 Other spondylosis with myelopathy, cervical region
CPT/HCPCS: 72141

== ENCOUNTER → 2019-02-06 | Outpatient (CLI) | payer MEDICARE ==
[~2019-02-06] MED LIST changes: +IOHEXOL 180 MG/ML 10 ML VIAL. ONE; +methylPREDNISolone ACETATE 40 MG/ML VIAL. ONE; +methylPREDNISolone ACETATE 80 MG/ML VIAL. ONE
--- NOTE | 2019-02-06 09:03 | PAIN ---
DATE OF SERVICE: 02/06/2019 PROGRESS NOTE FOR PAIN CLINIC DIAGNOSES: Lumbar radiculopathy with lumbar spinal stenosis, lumbar degenerative disk disease and lumbar post-laminectomy syndrome. HISTORY OF PRESENT ILLNESS: The patient is a 78-year-old female who returns for followup status post lumbar epidural steroid injection, most recently seen on 08/11/2018. The patient did very well with this, has had a decompressive surgery in September of this year at L4-L5 level. The patient reports she did well with the right side. It is relieved with the left side, has significant pain in the low back, posterior gluteus, posterior thigh and posterior calf. The patient reports it is 8 out of 10 on its worst, 8 on average and is a 5 at its least and is an 8 today. The patient reports no new motor or sensory deficits, no new bowel or bladder incontinence or other complaints. The patient reports also some pain in the base of the neck and shoulder on the right side and the patient does have new MRI scans of both the lumbar and cervical spines. We discussed these with the patient today in great detail. PHYSICAL EXAMINATION: VITAL SIGNS: The patient's blood pressure is 184/75, pulse 72, respirations 18, temperature 98.3 degrees Fahrenheit. Height 5 feet 6 inches. GENERAL: The patient is awake, alert, oriented, appropriate, very pleasant demeanor. HEENT: Head shows normocephalic, atraumatic. Extraocular movements are intact and symmetrical. Oral cavity: Mucous membranes moist and pink. Dentition is intact. NECK: Shows anterior throat supple without palpable lymphadenopathy noted. Swallow reflex symmetrical. CHEST: Shows normal on inspection. Breath sounds are clear to auscultation bilaterally. HEART: Shows S1, S2 clear. No murmurs auscultated. ABDOMEN: Soft, nontender, nondistended. No palpable organomegaly is noted. No rebound or guarding demonstrated. BACK: Shows spine grossly in the midline. Normal appearing thoracic kyphosis and lumbar lordotic curvature. Lumbar paraspinous muscle shows symmetrical on inspection, on palpation shows some moderate tenderness diffusely bilaterally, but only diffusely with well-healed surgical scar noted in the midline. The patient shows good rotational motion; however, the lower lumbar spine, both laterally as well as extension and flexion without significant difficulty. EXTREMITIES: The patient's lower extremities show deep tendon reflexes at 2+ in the patellar, 1+ tendo-calcaneus tendons. Motor exam is strong with 5/5 dorsiflexion, extension, quadriceps and hamstring flexion symmetrical. Peripheral pulses are 1+ posterior tibia. No peripheral edema is noted. Options were discussed with the patient. The patient's old chart was reviewed as her current medication regimen updated. Current review of systems updated today as well. We will proceed with a lumbar epidural steroid injection first in this series today with fluoroscopic guidance. Risks were again discussed including, but not limited to bleeding, infection, possibility of epidural hematoma, subsequent neurological compromise, dural puncture, headaches, spinal cord and/or nerve damage, side effects of steroid medication and poor results regarding pain control. The patient understands and wished to proceed. The patient will return to clinic in approximately 2 weeks for followup. She was counseled as to return appointment, activity level and side effects to be aware of. DIAGNOSES: Lumbar radiculopathy with lumbar spinal stenosis, lumbar degenerative disk disease and lumbar post-laminectomy syndrome. PROCEDURE: Lumbar epidural steroid injection, translaminar approach at the L5-S1 level using C-arm fluoroscopic guidance under sterile prep and drape using local anesthetic. MEDICATION INJECTED: A total of 120 mg Depo-Medrol plus 10 mL of preservative-free normal saline and 2 mL of contrast. CONDITION AT DISCHARGE: Stable. The patient tolerated procedure well, had no complications. TURNER LEVY MD DR: ALBERTO/lopez JOB#: [id number] / [id number]
== END ==
LOC: PNCL 07:49
PROVIDERS: ATTEND Anesthesiology
DX: M51.16 Intervertebral disc disorders with radiculopathy, lumbar region (principal); M96.1 Postlaminectomy syndrome, not elsewhere classified; M48.061 Spinal stenosis, lumbar region without neurogenic claudication
CPT/HCPCS: 62323; J1030; J1040; Q9965

== ENCOUNTER → 2019-05-19 | Outpatient (CLI) | payer OTHER ==
[2019-04-12 11:00] VITALS: BP 127/55
[~2019-05-19] MED LIST changes: +ASPI-630 PO; -IOHEXOL 180 MG/ML 10 ML VIAL. ONE; -OMEP20CA10 PO; +OMEP20CA16 PO; -methylPREDNISolone ACETATE 40 MG/ML VIAL. ONE; -methylPREDNISolone ACETATE 80 MG/ML VIAL. ONE
--- NOTE | 2019-05-19 15:57 | RAD ---
DUPLEX SONOGRAPHY OF THE PERIPHERAL ARTERIAL SYSTEM OF BOTH LOWER EXTREMITIES Clinical indications: Nonpalpable pedal pulses. History of hypertension and smoking. Findings: Duplex sonography of the peripheral arterial system of both lower extremities including bruner scale and color flow and spectral waveform analysis was performed. There is significant at least 50 percent stenosis of the proximal right SFA. No occlusive disease is seen on the right side. Normal triphasic waveforms are seen on the right side. On the left side, there is significant decrease in peak systolic flow velocity measurement from the distal superficial femoral artery of 69 cm/s down to the popliteal arterial measurement of 28 cm/s. This may be indicative of a significant stenosis between these 2 arteries. There is abnormal monophasic waveforms within the calf arteries with a diffuse decrease in peak systolic flow velocity measurements of the calf arteries on the left side. In addition, there is occlusion of the left dorsalis pedis artery. The measurements were performed using the NASCET criteria. Peak systolic flow velocities are as follows: Right leg: common femoral artery- 192 cm/sec, profunda femoral artery -76 cm/sec, proximal superficial femoral artery -314 cm/sec, mid superficial femoral artery -154 cm/sec, distal superficial femoral artery- 99 cm/sec, popliteal artery -69 cm/sec, proximal posterior tibial artery- 68 cm/sec, distal posterior tibial artery- 89 cm/sec, peroneal artery- 41 cm/sec, anterior tibial artery- 98 cm/sec, dorsalis pedis artery -53 cm/sec. Left leg: common femoral artery- 106 cm/sec, profunda femoral artery -104 cm/sec, proximal superficial femoral artery- 117cm/sec, mid superficial femoral artery- 70 cm/sec, distal superficial femoral artery- 69 cm/sec, popliteal artery -28 cm/sec, proximal posterior tibial artery -24th cm/sec, distal posterior tibial artery- 14 cm/sec, peroneal artery -37 cm/sec, anterior tibial artery -33 cm/sec, dorsalis pedis artery- 0 cm/sec. 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 Diffuse decrease in peak systolic flow velocity measurements within the left lower leg with a significant decrease in peak systolic flow velocity measurement from the distal superficial femoral artery to the popliteal artery on the left side. This may be indicative of a significant stenosis between these 2 arteries. No occlusive disease is seen on the right side. Abnormal elevation in the peak systolic flow velocity measurement within the proximal right superficial femoral artery which may be indicative of at least 50 percent stenosis here. Electronically signed by: Ke Martinez MD (05/19/2019 3:54 PM) [id number]
== END ==
LOC: US 06:25
PROVIDERS: ATTEND Podiatrist
DX: I70.212 Atherosclerosis of native arteries of extremities with intermittent claudication, left leg (principal); I10 Essential (primary) hypertension; Z79.891 Long term (current) use of opiate analgesic; Z87.891 Personal history of nicotine dependence
CPT/HCPCS: 93925

== ENCOUNTER → 2019-05-26 | Outpatient (CLI) | payer OTHER ==
[2019-04-12 11:00] VITALS: BP 127/55
--- NOTE | 2019-05-26 16:42 | [facility] ---
Bone mineral density exam History: Postmenopausal, diabetes, hyperthyroidism Comparison: 09/02/2017 Findings: Bone mineral density examination utilizing DEXA was performed. Left hip bone mineral density of 0.670 g/cm2 corresponds with a T score -2.2, Z score -0.2. There has been -1.9% decrease. The bone mineral density of the lumbar spine was 1.020 g/cm2 which corresponds with a T-score of 0.1, Z score 2.9. There has been -0.4% decrease. By World [employer] on Osteoporosis criteria, a T score of 0 to-1 SD is considered to be within normal limits. A T score of -1 to -2.5 SD is considered osteopenia. A T score less than -2.5 SD is considered osteoporosis Impression: 1. There is normal bone density of the lumbar spine although may be artificially elevated due to the presence of degenerative change. There is osteopenia of the left hip. Electronically signed by: Krzysztof Hui MD (05/26/2019 4:39 PM) [id number]
== END | disposition home or self-care (01) ==
LOC: KCIC DEXA 11:14
PROVIDERS: ATTEND Nurse Practitioner Family
DX: Z13.820 Encounter for screening for osteoporosis (principal); M85.80 Other specified disorders of bone density and structure, unspecified site; E11.9 Type 2 diabetes mellitus without complications; E05.90 Thyrotoxicosis, unspecified without thyrotoxic crisis or storm; Z78.0 Asymptomatic menopausal state
CPT/HCPCS: 77080

== ENCOUNTER → 2019-10-11 | Outpatient (CLI) | payer OTHER, MEDICARE ==
[2019-04-12 11:00] VITALS: BP 127/55
--- NOTE | 2019-10-11 14:33 | RAD ---
EXAM: BILATERAL 3-D DIGITAL DIAGNOSTIC MAMMOGRAPHY. HISTORY: Indeterminate left breast calcifications. TECHNIQUE: Bilateral full field digital images were obtained in CC and MLO projections with tomosynthesis. Magnification images are obtained laterally on the left. Computer-aided detection was applied. COMPARISON: 06/22/2018, 06/29/2018, 12/27/2018. COMPOSITION: C. The breasts are heterogeneously dense, which may obscure small masses. FINDINGS: The calcifications of concern laterally on the left appear to have been stable since at least 2015. This suggests a cluster is unclear on the lateral projection and these are thought to represent are benign superimposed scattered calcifications. Elsewhere, coarse and vascular calcifications appear benign. Scattered bilateral nodules are stable. There are no clearly suspicious masses, microcalcifications or architectural distortion. The parenchymal pattern is stable. BI-RADS CATEGORY 3: Probably Benign. RECOMMENDATION: 1. The calcifications of concern laterally are most likely benign. Additional magnification images can further demonstrate long-term stability when the patient returns for her bilateral examination in September 2020. Electronically signed by: Paola Mcdonnell MD (10/11/2019 2:30 PM) [id number]
== END | disposition home or self-care (01) ==
LOC: MAMMO 15:16
PROVIDERS: ATTEND Nurse Practitioner Family
DX: R92.1 Mammographic calcification found on diagnostic imaging of breast (principal); N63.20 Unspecified lump in the left breast, unspecified quadrant; N63.10 Unspecified lump in the right breast, unspecified quadrant
CPT/HCPCS: 77066; G0279; 77062